=== PATIENT | female | born 1985 | race Caucasian/White ===

== ENCOUNTER 2018-01-12 11:33 | Emergency (ER) | payer OTHER ==
[~2018-01-12] VITALS: Ht 181.6 cm; Wt 124.2 kg
[2018-01-12 11:36] VITALS: TEMP 37; Ht 181.6 cm; Wt 124.2 kg
[2018-01-12] MEDS ORDERED: FLUT0.15 (11:48)
[2018-01-12] MEDS ORDERED: SYN25 PO (11:48)
[2018-01-12] MEDS ORDERED: SERT-234 PO (11:48)
[2018-01-12] MEDS ORDERED: MULT-506 PO (11:48)
[2018-01-12] MEDS ORDERED: BCPILLS PO (11:48)
[2018-01-12 11:59] VITALS: O2SAT 99
[2018-01-12] MEDS ORDERED: SODIUM CHLORIDE 0.9% 1000ML 1,000 ML IV STA (12:07)
[2018-01-12] MEDS ORDERED: FAMOTIDINE 20MG/5ML IV PUSH IV STA (12:07)
--- NOTE | 2018-01-12 12:47 | EMERGENCY ROOM VISIT NOTE ---
History First contact with patient: 12:04 Chief Complaint: CHEST PAIN Stated Complaint: CHEST PAIN, DIZZINESS Nursing Triage Summary: WHILE AT WORK, SHE GOT UP TO USE BATHROOM AND FELT LIKE SHE WAS GOING TO PASS OUT. CHEST PAINS MIDDLE OF CHEST, STABBING. HISTORY OF LYMES DISEASE WITH SIMILAR SYMPTOMS. History of Present Illness The patient is a 30 year old female who presents to the Emergency Room with complaints of chest pain that began this morning at work when she got up to use the restroom and felt lightheaded. Reports pain as constant stabbing since onset. Denies radiation, diaphoresis, sob, n/v, f/c, cough, congestion. Reports she has been evaluated for similar symptoms several times in the past with elevated D-dimers since she takes OCPs but then would have negative CT scans. Also reports 2 years ago she was diagnosed with Lyme disease and also had similar symptoms. Denies any recent tick exposures or rashes. Source of History: patient Onset: This monring Position: chest Symptom Intensity: mild Quality: stabbing Timing: constant Modifying Factors (Worsening): exertion Modifying Factors (Relieving): rest Associated Symptoms: + chest pain, No LOC, No fevers, No chills, No diaphoresis, No cough, No SOB, No nausea, No vomiting, No abdominal pain Review of Systems See HPI for pertinent positives and negatives. A total of ten systems were reviewed and were otherwise negative. Past Medical/Surgical History Medical Problems: (1) Lyme disease Family History Patient reports no known family medical history. Social History Smoking Status: Never Smoker Alcohol Use: none Drug Use: none Marital Status: Occupation Status: employed Current/Historical Medications Scheduled Control Pills ( Control Pills), 1 TAB PO DAILY Levothyroxine Sodium (Synthroid), 25 MCG PO DAILY Multivitamin (Multivitamin), 1 TAB PO DAILY Sertraline (Zoloft), 100 MG PO DAILY Miscellaneous Medications Fluticasone Propionate (Nasal) (Flonase Allergy Relief) Allergies peanuts Physical Exam Vital Signs Date Time Temp Pulse Resp B/P (MAP) Pulse Ox O2 Delivery O2 Flow Rate FiO2 01/12/18 14:30 82 20 152/99 96 01/12/18 13:11 71 16 148/88 01/12/18 11:59 99 Room Air 01/12/18 11:36 37.0 91 17 142/84 99 Room Air Physical Exam GENERAL: Awake, alert, well-appearing, in no distress HENT: Normocephalic, atraumatic. Oropharynx unremarkable. EYES: Normal conjunctiva. Sclera non-icteric. NECK: Supple. No nuchal rigidity. FROM. No JVD. RESPIRATORY: Clear to auscultation. CARDIAC: Regular rate, normal rhythm. Extremities warm and well perfused. Pulses equal. ABDOMEN: Soft, non-distended. No tenderness to palpation. No rebound or guarding. No masses. RECTAL: Deferred. MUSCULOSKELETAL: Chest examination reveals no tenderness. The back is symmetrical on inspection without obvious abnormality. There is no CVA tenderness to palpation. No joint edema. LOWER EXTREMITIES: Calves are equal size bilaterally and non-tender. No edema. No discoloration. NEURO: Normal sensorium. No sensory or motor deficits noted. SKIN: No rash or jaundice noted. Medical Decision & Procedures ER Provider Diagnostic Interpretation: X-ray: Per my interpretation, radiologist review. CHEST ONE VIEW PORTABLE CLINICAL HISTORY: Chest pain. COMPARISON STUDY: No previous studies for comparison. FINDINGS: Lung volumes are normal. No consolidation is identified. There is no evidence for pulmonary edema. Cardiomediastinal silhouette is normal. A 3 cm sclerotic lesion within the right humeral head likely reflects a chondroid lesion. IMPRESSION: 1. No acute cardiopulmonary findings. 2. 3 cm sclerotic right humeral head lesion which likely reflects a chondroid lesion. No pathologically indeterminate, this statistically reflects an enchondroma. If persistent right shoulder pain, radiographic is recommended. Electronically signed by: Ko Au M.D. 01/12/2018 12:56 PM Dictated Date/Time: 01/12/2018 12:54 PM Laboratory Results 01/12/18 12:55 Red Blood Count 4.81, Mean Corpuscular Volume 74.6, Mean Corpuscular Hemoglobin 23.1, Mean Corpuscular Hemoglobin Concent 30.9, Mean Platelet Volume 9.5, Neutrophils (%) (Auto) 56.9, Lymphocytes (%) (Auto) 33.5, Monocytes (%) (Auto) 6.7, Eosinophils (%) (Auto) 1.9, Basophils (%) (Auto) 0.7, Neutrophils # (Auto) 4.25, Lymphocytes # (Auto) 2.50, Monocytes # (Auto) 0.50, Eosinophils # (Auto) 0.14, Basophils # (Auto) 0.05 01/12/18 12:55 Test 01/12/18 12:55 White Blood Count 7.46 K/uL (4.8-10.8) Red Blood Count 4.81 M/uL (4.2-5.4) Hemoglobin 11.1 g/dL (12.0-16.0) Hematocrit 35.9 % (37-47) Mean Corpuscular Volume 74.6 fL (80-100) Mean Corpuscular Hemoglobin 23.1 pg (25-34) Mean Corpuscular Hemoglobin Concent 30.9 g/dl (32-36) Platelet Count 416 K/uL (130-400) Mean Platelet Volume 9.5 fL (7.4-10.4) Neutrophils (%) (Auto) 56.9 % Lymphocytes (%) (Auto) 33.5 % Monocytes (%) (Auto) 6.7 % Eosinophils (%) (Auto) 1.9 % Basophils (%) (Auto) 0.7 % Neutrophils # (Auto) 4.25 K/uL (1.4-6.5) Lymphocytes # (Auto) 2.50 K/uL (1.2-3.4) Monocytes # (Auto) 0.50 K/uL (0.11-0.59) Eosinophils # (Auto) 0.14 K/uL (0-0.5) Basophils # (Auto) 0.05 K/uL (0-0.2) RDW Standard Deviation 44.4 fL (36.4-46.3) RDW Coefficient of Variation 16.2 % (11.5-14.5) Immature Granulocyte % (Auto) 0.3 % Immature Granulocyte # (Auto) 0.02 K/uL (0.00-0.02) Hypochromasia PRESENT Microcytosis PRESENT Anion Gap 9.0 mmol/L (3-11) Est Creatinine Clear Calc Drug Dose 165.2 ml/min Estimated GFR () 129.7 Estimated GFR (Non- 111.9 BUN/Creatinine Ratio 11.6 (10-20) Calcium Level 8.7 mg/dl (8.5-10.1) Magnesium Level 2.2 mg/dl (1.8-2.4) Total Bilirubin 0.2 mg/dl (0.2-1) Direct Bilirubin < 0.1 mg/dl (0-0.2) Aspartate Amino Transf (AST/SGOT) 29 U/L (15-37) Alanine Aminotransferase (ALT/SGPT) 30 U/L (12-78) Alkaline Phosphatase 84 U/L (45-117) Troponin I < 0.015 ng/ml (0-0.045) Total Protein 7.3 gm/dl (6.4-8.2) Albumin 3.1 gm/dl (3.4-5.0) Lipase 232 U/L (73-393) Human Chorionic Gonadotropin, Qual NEG (NEG) Laboratory results reviewed by me Medications Administered Medications (Trade) Dose Ordered Sig/Ridge Route Start Time Stop Time Status Last Admin Dose Admin Sodium Chloride 1,000 ml @ 999 mls/hr Q1H1M STAT IV 01/12/18 12:07 01/12/18 13:07 DC 01/12/18 13:10 999 MLS/HR Famotidine (Pepcid 20mg Iv Push) 20 mg NOW STAT IV 01/12/18 12:07 01/12/18 12:17 DC 01/12/18 13:10 20 MG ECG Per My Interpretation Indication: chest pain Rate (beats per minute): 79 Rhythm: normal sinus Findings: no acute ischemic change, other (normal axis) ED Course 1204: The patient was evaluated in room B10. A complete history and physical exam was performed. 1412: I reevaluated the patient. Discussed results and discharge instructions: she verbalized understanding and agreement. The patient is ready for discharge. Medical Decision I reviewed the patient's past medical history, medications, and the nursing notes as described above. Differential diagnosis: Etiologies such as cardiac ischemia, aortic dissection, pulmonary embolism, pneumonia, pneumothorax, musculoskeletal, infections, pericarditis, myocarditis , esophageal rupture, gastrointestinal, as well as others were entertained. The patient is a 30-year-old woman who presents emergency department with chest pain, shortness of breath, nausea that began earlier today and has been constant per hpi. Of note, patient does have a history of similar episodes in the past with negative D-dimers in the setting of her OCP use and subsequent negative CT scans. On arrival the patient is anxious appearing but otherwise in no acute distress, afebrile with stable vital signs. Of note the patient does report 2 years ago having similar symptoms and was subsequently diagnosed and treated for Lyme. However the patient denies any known tick exposures or rashes. She denies any fevers chills or arthralgias. Additionally given the patient is not tachycardic or hypoxic I do not believe PE is likely in this patient. Given her age and chronically elevated d-dimer we will defer any further investigation for this at this time to avoid unnecessary radiation. EKG unremarkable. Troponin negative in the setting of several hours of constant sx. Heart score, 1, low risk, ACS not likely. Labs otherwise unremarkable including WBC wnl. CXR negative. Patient improved after IVF and pepcid. Cause of patient' s sx unclear at this time however unlikely to have emergent process given prior episodes with negative w/u as well. Findings and plan for follow-up reviewed with patient. Patient agreeable and d/c'd per discharge instructions. The scribe's documentation has been prepared under my direction and personally reviewed by me in its entirety. I confirm that the note above accurately reflects all work, treatment, procedures, and medical decision making performed by me. Medication Reconcilliation Current Medication List: was personally reviewed by me Blood Pressure Screening Patient's blood pressure: Elevated blood pressure Blood pressure disposition: Elevated BP felt to be situational Impression Primary Impression: Substernal precordial chest pain Departure Information Dispostion Home / Self-Care Referrals Nikky Yuen M.D. (PCP) Forms Call Back Authorization, HOME CARE DOCUMENTATION FORM, IMPORTANT VISIT INFORMATION Patient Instructions ED Chest Pain Atypical Unkn Cause, My [facility] Additional Instructions Please follow up with your primary care physician in the next 1-3 days for re- evaluation. The cause of your symptoms is unclear at this time Otherwise, your exam, EKG, chest xray, and lab results did not show signs of an emergent condition at this time. Acetaminophen or ibuprofen for pain and fevers as needed. Drink plenty of fluids to ensure hydration. Return to the emergency department for worsening symptoms as described in the accompanying instructions.
--- NOTE | 2018-01-12 12:57 | DIAGNOSTIC IMAGING REPORT ---
CHEST ONE VIEW PORTABLE CLINICAL HISTORY: Chest pain. COMPARISON STUDY: No previous studies for comparison. FINDINGS: Lung volumes are normal. No consolidation is identified. There is no evidence for pulmonary edema. Cardiomediastinal silhouette is normal. A 3 cm sclerotic lesion within the right humeral head likely reflects a chondroid lesion. IMPRESSION: 1. No acute cardiopulmonary findings. 2. 3 cm sclerotic right humeral head lesion which likely reflects a chondroid lesion. No pathologically indeterminate, this statistically reflects an enchondroma. If persistent right shoulder pain, radiographic is recommended. Electronically signed by: Ko Au M.D. 01/12/2018 12:56 PM Dictated Date/Time: 01/12/2018 12:54 PM
[2018-01-12 13:29] LABS: BASO % 0.7 %; BASO ABS # 0.05 K/uL (0-0.2); EOS % 1.9 %; EOS ABS # 0.14 K/uL (0-0.5); HEMATOCRIT 35.9 % (37-47); HEMOGLOBIN 11.1 g/dL (12.0-16.0); IG# 0.02 K/uL (0.00-0.02); LYMPH % 33.5 %; MEAN CELL VOLUME 74.6 fL (80-100); MEAN CORPUSCULAR HEMOGLOBIN 23.1 pg (25-34); MEAN CORPUSCULAR HGB CONC 30.9 g/dl (32-36); MEAN PLATELET VOLUME 9.5 fL (7.4-10.4); MONO % 6.7 %; NEUT % 56.9 %; NEUT ABS # 4.25 K/uL (1.4-6.5); PLATELET COUNT 416 K/uL (130-400); RED CELL DISTRIBUTION WIDTH CV 16.2 % (11.5-14.5); RED CELL DISTRIBUTION WIDTH SD 44.4 fL (36.4-46.3); WHITE BLOOD COUNT 7.46 K/uL (4.8-10.8)
[2018-01-12 13:48] LABS: ALBUMIN 3.1 gm/dl (3.4-5.0); ALT/SGPT 30 U/L (12-78); BLOOD UREA NITROGEN 8 mg/dl (7-18); CALCIUM 8.7 mg/dl (8.5-10.1); CARBON DIOXIDE 26 mmol/L (21-32); CREATININE 0.71 mg/dl (0.60-1.20); GLUCOSE 79 mg/dl (70-99); LIPASE 232 U/L (73-393); POTASSIUM 3.6 mmol/L (3.5-5.1); SODIUM 139 mmol/L (136-145)
[2018-01-12 13:53] LABS: ALKALINE PHOSPHATASE 84 U/L (45-117); AST/SGOT 29 U/L (15-37); TOTAL PROTEIN 7.3 gm/dl (6.4-8.2)
[2018-01-12 14:30] VITALS: BP 152/99; PULSE 82; O2SAT 96
== END 2018-01-12 14:32 | disposition home or self-care (01) ==
LOC: C.EDB 11:34 → EDBD 11:34 → C.EDB 14:32
DX: R07.2 Precordial pain (principal); R42 Dizziness and giddiness; Z79.899 Other long term (current) drug therapy; Z91.010 Allergy to peanuts

== ENCOUNTER 2018-02-09 13:15 | Inpatient (IN) | payer OTHER ==
[~2018-02-09] VITALS: Ht 180.3 cm; Wt 117.0 kg
[~2018-02-09 13:15] MED LIST: BCPILLS PO; FLUT0.15; MULT-506 PO; SERT-234 PO; SYN25 PO
--- NOTE | 2018-02-09 14:01 | EMERGENCY ROOM VISIT NOTE ---
History First contact with patient: 13:37 Chief Complaint: LEG PAIN,LEG INJURY Stated Complaint: LEG PAIN History of Present Illness The patient is a 32 year old female who presents to the Emergency Room with complaints of left leg swelling and persistent chest pain. She reports she has had this chest pain over the last two years ever since she had Lyme disease, treated at an outside hospital. Since then she has had multiple episodes of sharp chest pain, which she has gone to the ED for. Her D-Dimer has frequently been positive, and then she has had multiple CT's for PE which have been negative. Her last CT was a year ago. She reports over the last three days has been present again, and she had thought she had flu like symptoms. She got scared when she noticed left leg swelling behind her knee, and she found it painful when she would flex her foot. The pain did not radiate, she did not have sx in her R leg at all. She denies any shortness of breath. Her heart has been racing, which is new for her. She denies cough, congestion, abdominal pain , or fever. Review of Systems See HPI for pertinent positives & negatives. A total of 10 systems reviewed and were otherwise negative. Past Medical/Surgical History Medical Problems: (1) Lyme disease Family History Patient reports no known family medical history. 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[employer]) Current/Historical Medications Scheduled Enoxaparin (Lovenox), 120 MG SQ BID Levothyroxine Sodium (Synthroid), 25 MCG PO QAM Metoprolol Tartrate (Lopressor), 25 MG PO DAILY Multivitamin (Multivitamin), 1 TAB PO QAM Omeprazole (Prilosec), 20 MG PO QAM Sertraline (Zoloft), 100 MG PO QAM Warfarin Sodium (Coumadin), 2 MG PO DAILY Warfarin Sodium (Coumadin), 3 MG PO DAILY Miscellaneous Medications Fluticasone Propionate (Nasal) (Flonase Allergy Relief) Allergies Peanuts Physical Exam Vital Signs Date Time Temp Pulse Resp B/P (MAP) Pulse Ox O2 Delivery O2 Flow Rate FiO2 02/09/18 18:12 103 19 141/90 94 Room Air 02/09/18 17:47 96 Room Air 02/09/18 16:41 96 22 139/90 96 Room Air 02/09/18 14:56 107 22 152/90 95 Room Air 02/09/18 13:54 100 Room Air 02/09/18 13:42 37.0 118 20 173/96 95 Room Air 02/09/18 13:32 111 Physical Exam GENERAL: Awake, alert, well-appearing, in no acute distress, obese. HENT: Normocephalic, atraumatic. Oropharynx unremarkable. EYES: Normal conjunctiva. Sclera non-icteric. NECK: Supple. No nuchal rigidity. FROM. No JVD. RESPIRATORY: Clear to auscultation. CARDIAC: Regular rate, normal rhythm. Extremities warm and well perfused. Pulses equal. ABDOMEN: Soft, non-distended. No tenderness to palpation. No rebound or guarding. No masses. RECTAL: Deferred. MUSCULOSKELETAL: Chest examination reveals no tenderness. The back is symmetrical on inspection without obvious abnormality. There is no CVA tenderness to palpation. No joint edema. LOWER EXTREMITIES: No tenderness or edema to R leg. Fullness behind L knee, soft , nontender. No edema. No discoloration. Full ROM of leg. NEURO: Normal sensorium. No sensory or motor deficits noted. SKIN: No rash or jaundice noted. Medical Decision & Procedures ER Provider Diagnostic Interpretation: ULTRASOUND LEFT LOWER EXTREMITY VENOUS CLINICAL HISTORY: Left leg swelling. COMPARISON STUDY: No priors. TECHNIQUE: Real-time, grayscale, and color Doppler sonography of the deep veins of the left lower extremity was performed from the inguinal crease to the calf. Compression and augmentation were utilized. FINDINGS: There is no sonographic evidence of deep venous thrombosis identified in the left lower extremity. The common femoral, superficial femoral, and popliteal veins are patent and normally compressible. The greater saphenous vein and the profunda femoris vein at the junction with the common femoral vein are clear. The visualized calf veins are patent. IMPRESSION: There is no sonographic evidence of deep venous thrombosis identified in the left lower extremity. CT PE IMPRESSION: 1. Multiple bilateral pulmonary emboli. No CT evidence of right heart strain. No pulmonary infarct. Findings discussed with Dr. Villanueva at time of dictation. 2. Apparent 2.5 cm hypodense hepatic lesion which is partially imaged on this exam. A follow-up nonemergent MRI of the liver could be obtained. This could reflect a lesion or focal fat. 3. 2.7 cm chondroid lesion within the right humeral head which statistically reflects an enchondroma. Laboratory Results Test 02/09/18 14:00 02/09/18 14:11 02/09/18 14:26 Urine Test NEG (NEG) Immature Granulocyte % (Auto) 0.2 % White Blood Count 11.39 K/uL (4.8-10.8) Red Blood Count 5.28 M/uL (4.2-5.4) Hemoglobin 11.8 g/dL (12.0-16.0) Hematocrit 38.8 % (37-47) Mean Corpuscular Volume 73.5 fL (80-100) Mean Corpuscular Hemoglobin 22.3 pg (25-34) Mean Corpuscular Hemoglobin Concent 30.4 g/dl (32-36) Platelet Count 397 K/uL (130-400) Mean Platelet Volume 9.4 fL (7.4-10.4) Neutrophils (%) (Auto) 89.0 % Lymphocytes (%) (Auto) 6.3 % Monocytes (%) (Auto) 3.9 % Eosinophils (%) (Auto) 0.4 % Basophils (%) (Auto) 0.2 % Neutrophils # (Auto) 10.15 K/uL (1.4-6.5) Lymphocytes # (Auto) 0.72 K/uL (1.2-3.4) Monocytes # (Auto) 0.44 K/uL (0.11-0.59) Eosinophils # (Auto) 0.04 K/uL (0-0.5) Basophils # (Auto) 0.02 K/uL (0-0.2) Immature Granulocyte # (Auto) 0.02 K/uL (0.00-0.02) Large Platelets 1+ Poikilocytosis PRESENT Total Bilirubin 0.4 mg/dl (0.2-1) Aspartate Amino Transf (AST/SGOT) 27 U/L (15-37) Alanine Aminotransferase (ALT/SGPT) 26 U/L (12-78) Alkaline Phosphatase 84 U/L (45-117) Total Protein 7.8 gm/dl (6.4-8.2) Albumin 3.1 gm/dl (3.4-5.0) Globulin 4.7 gm/dl (2.5-4.0) Albumin/Globulin Ratio 0.7 (0.9-2) Bedside D-Dimer > 450 ng/mlFEU (0-450) Bedside Troponin I < 0.030 ng/ml (0-0.045) Medications Administered Medications (Trade) Dose Ordered Sig/Ridge Route Start Time Stop Time Status Last Admin Dose Admin Ondansetron HCl (Zofran Odt) 4 mg NOW STAT PO 02/09/18 15:34 02/09/18 15:35 DC 02/09/18 15:40 4 MG Heparin Sodium/ Dextrose (Heparin 25,000 Unit/500ml D5W) 25,000 unit STK-MED ONCE .ROUTE 02/09/18 17:04 02/09/18 17:05 DC 02/09/18 17:40 25,000 UNIT Heparin Sodium (Porcine) (Heparin Iv Bolus) 10,000 unit STK-MED ONCE .ROUTE 02/09/18 17:04 02/09/18 17:05 DC 02/09/18 17:41 7,000 UNIT Sodium Chloride 500 ml @ 50 mls/hr Q10H ONCE IV 02/09/18 18:15 02/10/18 04:14 DC 02/09/18 20:38 50 MLS/HR Acetaminophen (Tylenol Tab) 650 mg Q4H PRN PO 02/09/18 18:15 02/13/18 13:34 DC 02/09/18 20:37 650 MG ECG Per My Interpretation Indication: chest pain Rhythm: sinus tachycardia Findings: no acute ischemic change ED Course 1338: The patient was evaluated in room A5. A complete history and physical exam was performed. 1446: I discussed the case with Dr. Abel. I ordered a CT for PE. 1534: Ordered Zofran Odt 4 mg PO. 1656: Ordered Heparin Sodium/Dextrose since her CT was positive for PE. 1707: Upon reevaluation, the patient appears comfortable. Dr Abel and I discussed tonight's findings with her, including diagnosis and Heparin usage. She verbalized agreement of the treatment plan. The patient will be evaluated for further management. Medical Decision 32 yo F who presents with recurrent chest pain and tachycardia, and left leg swelling. Her risk factors for PE included obesity, OCP use. She has had multiple work ups for chest pain and interestingly has had positive D-Dimers in the past with negative CT for PE's. Differential includes: deep vein thrombosis , superficial thrombophlebitis, pulmonary embolism, pleurisy, pericarditis, GERD. The patient had an IV placed and labs drawn. Her urinary was negative. Her D-Dimer was over 3300, so CT was ordered. Her US of the left leg was negative for blood clot. The CT showed bilateral pulmonary emboli. The patient was started on heparin drip with IV bolus and admitted to medicine for further evaluation and management. Impression Primary Impression: Pulmonary embolism, bilateral Departure Information Dispostion Being Evaluated By Hospitalist Condition GOOD Prescriptions Enoxaparin (LOVENOX) 40 Mg/0.4 Ml Inj 120 MG SQ BID, #3 SYR Prov: Eric Monroy MD 02/13/18 Warfarin Sodium (COUMADIN) 3 Mg Tab 3 MG PO DAILY for 30 Days, #30 TAB 1 Refill coumadin 5mg po daily until further instructions from coumadin clinic Prov: Eric Monroy MD 02/13/18 Warfarin Sodium (COUMADIN) 2 Mg Tab 2 MG PO DAILY, #30 TAB 1 Refill coumadin 5mg po daily until further instructions from coumadin clinic Prov: Eric Monroy MD 02/13/18 Referrals Nikky Yuen M.D. (PCP) Patient Instructions My [facility]
[2018-02-09 14:26] LABS: BASO % 0.2 %; BASO ABS # 0.02 K/uL (0-0.2); EOS % 0.4 %; EOS ABS # 0.04 K/uL (0-0.5); HEMATOCRIT 38.8 % (37-47); HEMOGLOBIN 11.8 g/dL (12.0-16.0); IG# 0.02 K/uL (0.00-0.02); LYMPH % 6.3 %; LYMPH ABS # 0.72 K/uL (1.2-3.4); MEAN CELL VOLUME 73.5 fL (80-100); MEAN CORPUSCULAR HEMOGLOBIN 22.3 pg (25-34); MEAN CORPUSCULAR HGB CONC 30.4 g/dl (32-36); MEAN PLATELET VOLUME 9.4 fL (7.4-10.4); MONO % 3.9 %; MONO ABS # 0.44 K/uL (0.11-0.59); NEUT ABS # 10.15 K/uL (1.4-6.5); PLATELET COUNT 397 K/uL (130-400); RED CELL DISTRIBUTION WIDTH CV 16.9 % (11.5-14.5); RED CELL DISTRIBUTION WIDTH SD 45.9 fL (36.4-46.3); WHITE BLOOD COUNT 11.39 K/uL (4.8-10.8)
[2018-02-09 14:42] LABS: ALBUMIN 3.1 gm/dl (3.4-5.0); CALCIUM 8.5 mg/dl (8.5-10.1); CREATININE 0.81 mg/dl (0.60-1.20); POTASSIUM 3.8 mmol/L (3.5-5.1)
--- NOTE | 2018-02-09 14:42 | DIAGNOSTIC IMAGING REPORT ---
ULTRASOUND LEFT LOWER EXTREMITY VENOUS CLINICAL HISTORY: Left leg swelling. COMPARISON STUDY: No priors. TECHNIQUE: Real-time, grayscale, and color Doppler sonography of the deep veins of the left lower extremity was performed from the inguinal crease to the calf. Compression and augmentation were utilized. FINDINGS: There is no sonographic evidence of deep venous thrombosis identified in the left lower extremity. The common femoral, superficial femoral, and popliteal veins are patent and normally compressible. The greater saphenous vein and the profunda femoris vein at the junction with the common femoral vein are clear. The visualized calf veins are patent. IMPRESSION: There is no sonographic evidence of deep venous thrombosis identified in the left lower extremity. Electronically signed by: Mango Garcia M.D. 02/09/2018 2:41 PM Dictated Date/Time: 02/09/2018 2:41 PM
[2018-02-09 14:45] LABS: TOTAL PROTEIN 7.8 gm/dl (6.4-8.2)
[2018-02-09] MEDS ORDERED: PRLSR20 PO (14:52)
[2018-02-09] MEDS ORDERED: OPTIRAY 320 IV PRN (15:00)
[2018-02-09] MEDS ORDERED: ONDANSETRON 4MG OD TAB PO STA (15:34)
--- NOTE | 2018-02-09 16:59 | DIAGNOSTIC IMAGING REPORT ---
CT ANGIOGRAPHY OF THE CHEST, PULMONARY EMBOLUS PROTOCOL CLINICAL HISTORY: Chest pain. Elevated d-dimer. Leg pain. COMPARISON STUDY: Chest radiograph January 12, 2018. TECHNIQUE: Following IV administration of 101 mL of [id number]-320, helical axial images of the chest were obtained utilizing the pulmonary embolus protocol. Maximal intensity projections and sagittal and coronal reformats were viewed on an independent 3D workstation. IV contrast was administered without complication. A dose lowering technique was utilized adhering to the principles of ALARA. CT DOSE: 537.28 mGycm FINDINGS: There are multiple bilateral pulmonary emboli, including subocclusive thrombus within the right lower lobe pulmonary artery. This vessel is slightly expanded. Emboli are also noted within the left lower lobe pulmonary artery which appear adherent to the wall. This thrombus may be old. Segmental emboli within the left lower lobe are likely acute. There are segmental emboli within the right lower lobe which are likely acute. There is no CT evidence for right heart strain. There is no infarct. No pneumothorax or pleural effusion is noted. Note is made of a 2.7 cm chondroid lesion within the right humeral head. There is a apparent 2.5 cm hypodense segment 4A/8 hepatic lesion shown on image 2. This is partially imaged on this exam. IMPRESSION: 1. Multiple bilateral pulmonary emboli. No CT evidence of right heart strain. No pulmonary infarct. Findings discussed with Dr. Villanueva at time of dictation. 2. Apparent 2.5 cm hypodense hepatic lesion which is partially imaged on this exam. A follow-up nonemergent MRI of the liver could be obtained. This could reflect a lesion or focal fat. 3. 2.7 cm chondroid lesion within the right humeral head which statistically reflects an enchondroma. Electronically signed by: Ko Au M.D. 02/09/2018 4:58 PM Dictated Date/Time: 02/09/2018 4:42 PM
[2018-02-09] MEDS: HEPARIN 25000 UNIT/500 ML D5W ONE ×2 (17:04→17:40)
[2018-02-09] MEDS: HEPARIN SOD (PORCINE) 1000 UNIT/ML 10 ML VIAL ONE ×2 (17:04→17:41)
--- NOTE | 2018-02-09 17:20 | History and Physical ---
History & Physical Date & Time of Service: Feb 09, 2018 at 17:20 Chief Complaint: Leg Pain Primary Care Physician: Nikky Yuen M.D. History of Present Illness Source: patient Patient is a 32 yr female with PMH of PCOS, Hypothyroidism, GERD, anxiety disorder and other problems presents with history of Intermittent chest pain, SOB, palpitations, dizziness, nausea and diaphoresis. Patient reports she has intermittent chest pain since last 1 1/2 years (Since being diagnosed to have Lyme's disease at that time) and was thought to be secondary to anxiety. Patient noticed worsening of chest pain since last 3 days. Reports chest pain is dull, retrosternal, pressure like which improves with rest and is associated with nausea, vomiting, diaphoresis, dizziness, palpitations and chills. She also reports Left leg pain behind her left knee and was seen at Urgent Care and was referred to ED for further evaluation. CTA showed findings suggestive of multiple bilateral pulmonary emboli and patient admits to taking OCPs for contraception. Denies any history of Orthopnea, PND, pedal edema, cough, hemoptysis, fever, chills, recent travel. She reports that started to have her periods today. Past Medical/Surgical History Medical Problems: (1) Lyme disease (2) Substernal precordial chest pain Past Surgical History: Right Humerus Chondroblastoma removal Family History Patient reports no known family medical history. Mother: Hypothyroid, Heart disease Brother: Type I DM Social History Smoking Status: Never Smoker Alcohol Use: socially Drug Use: none Marital Status: Occupational Status: employed Allergies Coded Allergies: Peanut (Unverified Allergy, Unknown, hives and vomiting, 02/09/18) Home Medications Scheduled Control Pills ( Control Pills), 1 TAB PO QAM Levothyroxine Sodium (Synthroid), 25 MCG PO QAM Metoprolol Tartrate (Lopressor), 25 MG PO DAILY Multivitamin (Multivitamin), 1 TAB PO QAM Omeprazole (Prilosec), 20 MG PO QAM Sertraline (Zoloft), 100 MG PO QAM Miscellaneous Medications Fluticasone Propionate (Nasal) (Flonase Allergy Relief) Review of Systems See HPI for pertinent positives & negatives. A total of 10 systems reviewed and were otherwise negative. Physical Exam Vital Signs Date Time Temp Pulse Resp B/P (MAP) Pulse Ox O2 Delivery O2 Flow Rate FiO2 02/09/18 16:41 96 22 139/90 96 Room Air 02/09/18 14:56 107 22 152/90 95 Room Air 02/09/18 13:54 100 Room Air 02/09/18 13:42 37.0 118 20 173/96 95 Room Air 02/09/18 13:32 111 General Appearance: WD/WN, no apparent distress, + obese Head: normocephalic, atraumatic Eyes: normal inspection, PERRL, EOMI, sclerae normal ENT: normal ENT inspection, hearing grossly normal Neck: supple, trachea midline Respiratory/Chest: chest non-tender, lungs clear, normal breath sounds, no respiratory distress, no accessory muscle use Cardiovascular: regular rate, rhythm, no edema, no murmur, + tachycardia Abdomen/GI: normal bowel sounds, non tender, soft Back: normal inspection Extremities/Musculoskelatal: normal inspection, no pedal edema, + pertinent finding (Mild tendeness behind Left knee, No erythema, swelling) Neurologic/Psych: inpatient nursing aide II-XII nml as tested, no motor/sensory deficits, alert, normal mood/affect, oriented x 3 Skin: normal color, warm/dry Diagnostics Laboratory Results Results Past 24 Hours Test 02/09/18 14:00 02/09/18 14:11 02/09/18 14:26 Range/Units Urine Test NEG NEG White Blood Count 11.39 4.8-10.8 K/uL Red Blood Count 5.28 4.2-5.4 M/uL Hemoglobin 11.8 12.0-16.0 g/dL Hematocrit 38.8 37-47 % Mean Corpuscular Volume 73.5 80-100 fL Mean Corpuscular Hemoglobin 22.3 25-34 pg Mean Corpuscular Hemoglobin Concent 30.4 32-36 g/dl Platelet Count 397 130-400 K/uL Mean Platelet Volume 9.4 7.4-10.4 fL Neutrophils (%) (Auto) 89.0 % Lymphocytes (%) (Auto) 6.3 % Monocytes (%) (Auto) 3.9 % Eosinophils (%) (Auto) 0.4 % Basophils (%) (Auto) 0.2 % Neutrophils # (Auto) 10.15 1.4-6.5 K/uL Lymphocytes # (Auto) 0.72 1.2-3.4 K/uL Monocytes # (Auto) 0.44 0.11-0.59 K/uL Eosinophils # (Auto) 0.04 0-0.5 K/uL Basophils # (Auto) 0.02 0-0.2 K/uL RDW Standard Deviation 45.9 36.4-46.3 fL RDW Coefficient of Variation 16.9 11.5-14.5 % Immature Granulocyte % (Auto) 0.2 % Immature Granulocyte # (Auto) 0.02 0.00-0.02 K/uL Large Platelets 1+ Poikilocytosis PRESENT Sodium Level 136 136-145 mmol/L Potassium Level 3.8 3.5-5.1 mmol/L Chloride Level 104 98-107 mmol/L Carbon Dioxide Level 25 21-32 mmol/L Anion Gap 7.0 3-11 mmol/L Blood Urea Nitrogen 12 7-18 mg/dl Creatinine 0.81 0.60-1.20 mg/dl Est Creatinine Clear Calc Drug Dose 140.3 ml/min Estimated GFR () 110.6 Estimated GFR (Non- 95.4 BUN/Creatinine Ratio 15.3 10-20 Random Glucose 94 70-99 mg/dl Calcium Level 8.5 8.5-10.1 mg/dl Total Bilirubin 0.4 0.2-1 mg/dl Aspartate Amino Transf (AST/SGOT) 27 15-37 U/L Alanine Aminotransferase (ALT/SGPT) 26 12-78 U/L Alkaline Phosphatase 84 45-117 U/L Total Protein 7.8 6.4-8.2 gm/dl Albumin 3.1 3.4-5.0 gm/dl Globulin 4.7 2.5-4.0 gm/dl Albumin/Globulin Ratio 0.7 0.9-2 Bedside D-Dimer > 450 0-450 ng/mlFEU Bedside Troponin I < 0.030 0-0.045 ng/ml Diagnostic Radiology CTA: 1. Multiple bilateral pulmonary emboli. No CT evidence of right heart strain. No pulmonary infarct. Findings discussed with Dr. Villanueva at time of dictation. 2. Apparent 2.5 cm hypodense hepatic lesion which is partially imaged on this exam. A follow-up nonemergent MRI of the liver could be obtained. This could reflect a lesion or focal fat. 3. 2.7 cm chondroid lesion within the right humeral head which statistically reflects an enchondroma. Venous Doppler: There is no sonographic evidence of deep venous thrombosis identified in the left lower extremity. EKG EKG: Sinus tachycardia Possible Left atrial enlargement Impression Assessment and Plan Acute B/L Pulmonary Emboli Likely secondary to OCP use CTA: Multiple bilateral pulmonary emboli. No CT evidence of right heart strain. No pulmonary infarct Saturating well on Room air Start on IV heparin Monitor in Tele for hemodynamic changes Venous Doppler: Negative Oxygen PRN Discontinue OCPs hypercoagulable work up as outpatient Consider starting on newer anticoagulants as per Patient's preference tomorrow Check ECHO Trend cardiac enzymes Incidental hepatic lesion on CT scan: follow-up with nonemergent MRI of the liver as outpatient PCOS: Previously on Metformin (Discontinued 2/2 GI symptoms) Hypothyroidism: Continue Levothyroxine GERD: continue PPI Anxiety disorder: continue home meds DVT Px: On IV heparin ggt Code Status: Full Code Disposition: Monitor in Tele Expect to discharge home when stable Resuscitation Status VTE Prophylaxis Will order VTE Prophylaxis: Yes
--- NOTE | 2018-02-09 17:25 | EMERGENCY ROOM VISIT NOTE ---
History Report prepared by Edison: Imer Kumar Under the Supervision of: Dr. Jason Abel M.D. First contact with patient: 13:37 Chief Complaint: LEG PAIN,LEG INJURY Stated Complaint: LEG PAIN History of Present Illness The patient is a 32 year old female who presents to the Emergency Room with complaints of constant left leg swelling and pain beginning a few days ago. She localizes her symptoms to behind her left knee. The patient was seen at urgent care for her symptoms and was referred to the ED. She notes that she vomited earlier today, and then once at urgent care. She states that walking "pinches" her calf. The patient also complains of heart palpitations over the past few days. She is on control, and her periods have been normal (sexually active , started spotting today). She notes that she works in [employer] and sits a lot at work. The patient has no personal or family history of blood clots. She denies recent travel. She denies fevers. The patient adds that she has been experiencing chest pain and shortness of breath for the past three days. She describes her pain as a "tightness". She has a history of intermittent chest pain for the past few years and states that her chest pain feels identical to her normal chest pain. The patient states that her normal chest pain has been present ever since she was diagnosed with Lyme's disease. She states that her pain was initially "sharp" and "stabbing" but became more of a "tightness" a few years ago. Her pain is typically present for 3-4 days at a time. The patient has been evaluated at multiple hospitals for her chest pain. She notes that her D-dimer is always positive, and she has had frequent chest CT's. Source of History: patient Onset: A few days ago Position: leg (behind left knee) Quality: other (pain and swelling) Timing: constant Modifying Factors (Worsening): other (walking) Associated Symptoms: + chest pain ("tightness"), + SOB, No fevers Review of Systems See HPI for pertinent positives & negatives. A total of 10 systems reviewed and were otherwise negative. Past Medical & Surgical Medical Problems: (1) Lyme disease Family History Patient reports no known family medical history. Social History Smoking Status: Never Smoker Alcohol Use: none Drug Use: none Marital Status: Occupation Status: employed Current/Historical Medications Scheduled Control Pills ( Control Pills), 1 TAB PO QAM Levothyroxine Sodium (Synthroid), 25 MCG PO QAM Multivitamin (Multivitamin), 1 TAB PO QAM Omeprazole (Prilosec), 20 MG PO QAM Sertraline (Zoloft), 100 MG PO QAM Miscellaneous Medications Fluticasone Propionate (Nasal) (Flonase Allergy Relief) Allergies Coded Allergies: Peanut (Unverified Allergy, Unknown, hives and vomiting, 02/09/18) Physical Exam Vital Signs Date Time Temp Pulse Resp B/P (MAP) Pulse Ox O2 Delivery O2 Flow Rate FiO2 02/09/18 16:41 96 22 139/90 96 Room Air 02/09/18 14:56 107 22 152/90 95 Room Air 02/09/18 13:54 100 Room Air 02/09/18 13:42 37.0 118 20 173/96 95 Room Air 02/09/18 13:32 111 Physical Exam Constitutional: Vital signs reviewed. Eyes: Pupils are equal round reactive to light. Conjunctiva are noninjected. ENT: Pharynx is clear without erythema or exudate. Mucous membranes are moist. Neck supple without meningeal signs. Respiratory: Clear to auscultation bilaterally. Breath sounds are equal bilaterally. Cardiovascular: Regular rate and rhythm. No rubs or gallops. GI: Soft, nondistended and nontender. Bowel sounds are present. Musculoskeletal: No peripheral edema. Mild left calf tenderness. Integumentary: No cyanosis. Neurological: The patient is awake and alert. No focal deficits. Psychiatric: Normal affect. Medical Decision & Procedures ER Provider Diagnostic Interpretation: Radiology results as stated below per my review and the radiologist's interpretation: ULTRASOUND LEFT LOWER EXTREMITY VENOUS FINDINGS: There is no sonographic evidence of deep venous thrombosis identified in the left lower extremity. The common femoral, superficial femoral, and popliteal veins are patent and normally compressible. The greater saphenous vein and the profunda femoris vein at the junction with the common femoral vein are clear. The visualized calf veins are patent. IMPRESSION: There is no sonographic evidence of deep venous thrombosis identified in the left lower extremity. Electronically signed by: Mango Garcia M.D. 02/09/2018 2:[address] ANGIOGRAPHY OF THE CHEST, PULMONARY EMBOLUS PROTOCOL FINDINGS: There are multiple bilateral pulmonary emboli, including subocclusive thrombus within the right lower lobe pulmonary artery. This vessel is slightly expanded. Emboli are also noted within the left lower lobe pulmonary artery which appear adherent to the wall. This thrombus may be old. Segmental emboli within the left lower lobe are likely acute. There are segmental emboli within the right lower lobe which are likely acute. There is no CT evidence for right heart strain. There is no infarct. No pneumothorax or pleural effusion is noted. Note is made of a 2.7 cm chondroid lesion within the right humeral head. There is a apparent 2.5 cm hypodense segment 4A/8 hepatic lesion shown on image 2. This is partially imaged on this exam. IMPRESSION: 1. Multiple bilateral pulmonary emboli. No CT evidence of right heart strain. No pulmonary infarct. Findings discussed with Dr. Villanueva at time of dictation. 2. Apparent 2.5 cm hypodense hepatic lesion which is partially imaged on this exam. A follow-up nonemergent MRI of the liver could be obtained. This could reflect a lesion or focal fat. 3. 2.7 cm chondroid lesion within the right humeral head which statistically reflects an enchondroma. Electronically signed by: Ko Au M.D. 02/09/2018 4:58 PM Laboratory Results 02/09/18 14:11 Red Blood Count 5.28, Mean Corpuscular Volume 73.5, Mean Corpuscular Hemoglobin 22.3, Mean Corpuscular Hemoglobin Concent 30.4, Mean Platelet Volume 9.4, Neutrophils (%) (Auto) 89.0, Lymphocytes (%) (Auto) 6.3, Monocytes (%) (Auto) 3.9, Eosinophils (%) (Auto) 0.4, Basophils (%) (Auto) 0.2, Neutrophils # (Auto) 10.15, Lymphocytes # (Auto) 0.72, Monocytes # (Auto) 0.44, Eosinophils # (Auto) 0.04, Basophils # (Auto) 0.02 02/09/18 14:11 Test 02/09/18 14:00 02/09/18 14:11 02/09/18 14:26 Urine Test NEG (NEG) White Blood Count 11.39 K/uL (4.8-10.8) Red Blood Count 5.28 M/uL (4.2-5.4) Hemoglobin 11.8 g/dL (12.0-16.0) Hematocrit 38.8 % (37-47) Mean Corpuscular Volume 73.5 fL (80-100) Mean Corpuscular Hemoglobin 22.3 pg (25-34) Mean Corpuscular Hemoglobin Concent 30.4 g/dl (32-36) Platelet Count 397 K/uL (130-400) Mean Platelet Volume 9.4 fL (7.4-10.4) Neutrophils (%) (Auto) 89.0 % Lymphocytes (%) (Auto) 6.3 % Monocytes (%) (Auto) 3.9 % Eosinophils (%) (Auto) 0.4 % Basophils (%) (Auto) 0.2 % Neutrophils # (Auto) 10.15 K/uL (1.4-6.5) Lymphocytes # (Auto) 0.72 K/uL (1.2-3.4) Monocytes # (Auto) 0.44 K/uL (0.11-0.59) Eosinophils # (Auto) 0.04 K/uL (0-0.5) Basophils # (Auto) 0.02 K/uL (0-0.2) RDW Standard Deviation 45.9 fL (36.4-46.3) RDW Coefficient of Variation 16.9 % (11.5-14.5) Immature Granulocyte % (Auto) 0.2 % Immature Granulocyte # (Auto) 0.02 K/uL (0.00-0.02) Large Platelets 1+ Poikilocytosis PRESENT Anion Gap 7.0 mmol/L (3-11) Est Creatinine Clear Calc Drug Dose 140.3 ml/min Estimated GFR () 110.6 Estimated GFR (Non- 95.4 BUN/Creatinine Ratio 15.3 (10-20) Calcium Level 8.5 mg/dl (8.5-10.1) Total Bilirubin 0.4 mg/dl (0.2-1) Aspartate Amino Transf (AST/SGOT) 27 U/L (15-37) Alanine Aminotransferase (ALT/SGPT) 26 U/L (12-78) Alkaline Phosphatase 84 U/L (45-117) Total Protein 7.8 gm/dl (6.4-8.2) Albumin 3.1 gm/dl (3.4-5.0) Globulin 4.7 gm/dl (2.5-4.0) Albumin/Globulin Ratio 0.7 (0.9-2) Bedside D-Dimer > 450 ng/mlFEU (0-450) Bedside Troponin I < 0.030 ng/ml (0-0.045) Laboratory results as reviewed by me. Medications Administered Medications (Trade) Dose Ordered Sig/Ridge Route Start Time Stop Time Status Last Admin Dose Admin Ondansetron HCl (Zofran Odt) 4 mg NOW STAT PO 02/09/18 15:34 02/09/18 15:35 DC 02/09/18 15:40 4 MG ECG Per My Interpretation Indication: chest pain Rate (beats per minute): 103 Rhythm: sinus tachycardia Findings: other (No ST elevations. No PVCs. ) ED Course 1338: The patient was evaluated in room A5. A complete history and physical exam was performed. 1534: Ordered Zofran Odt 4 mg PO. 1656: Ordered Heparin Sodium/Dextrose. 1707: Upon reevaluation, the patient appears comfortable. I discussed tonight's findings with her, including diagnosis and Heparin usage. She verbalized agreement of the treatment plan. The patient will be evaluated for further management. Medical Decision Resident Physician Supervision Note: I did evaluate and examine this patient myself. I did guide management for the patient. I agree with the resident's Dr. Courtney Villanueva assessment as discussed. Please see the resident's dictation for further details. This is a 32-year-old female presents with chest pain and leg pain. Differential diagnosis includes DVT, superficial thrombophlebitis, pulmonary embolism, pleurisy, pericarditis, GERD. I did perform a limited focused review of portions of the patient's old chart on the electronic medical record. The patient was here January 12 for chest pain. She had a negative work-up and was discharged home. I did evaluate the patient as noted above. IV access was established. The patient was placed on a continuous court recording monitor. I did order and personally review the patient's 12-lead EKG as described above. I did order and review the patient's blood work as noted in the electronic medical record. D-dimer is over 3300. Doppler ultrasound of the left leg showed no evidence of DVT. I did order a CT of the chest. I did review the images myself as well as the radiology report as described above. She does have multiple pulmonary emboli. I did discuss the test results with the patient. We did review risks and benefits of heparin IV with her. She was started on a heparin drip with an IV bolus. The case was discussed with the hospitalist and returned case inspector. Medication Reconcilliation Current Medication List: was personally reviewed by me Blood Pressure Screening Patient's blood pressure: Elevated blood pressure Blood pressure disposition: Referred to PCP Consults Time Called: 1706 Consulting Physician: Dr. Sellers - Abdirahman Hospitalist Returned Call: [address] [facility] of [facility]. We discussed the patient and her results. The patient will be further evaluated by Abdirahman. Impression Primary Impression: Bilateral pulmonary embolism Critical Care I have personally spent 32 minutes of critical care time in the direct management of this patient. This includes bedside care, interpretation of diagnostic studies, and testing, discussion with consultants, patient, and family members, and other required patient management activities. This 32 minutes is in excess of all separately billable procedures. Scribe Attestation The scribe's documentation has been prepared under my direct and personally reviewed by me in its entirety. I confirm that the note above accurately reflects all work, treatment, procedures, and medical decision making performed by me. Departure Information Dispostion Being Evaluated By Hospitalist Nikky Cavazos M.D. (PCP) Patient Instructions My [facility]
[2018-02-09 17:27] LABS: INR 0.9 (0.9-1.1); PTT PATIENT 22.9 SECONDS (21.0-31.0)
[2018-02-09 17:47] VITALS: O2SAT 96; Ht 180.3 cm; Wt 117.0 kg
[2018-02-09] MEDS ORDERED: ACETAMINOPHEN 325 MG TAB PO PRN (18:15)
[2018-02-09] MEDS ORDERED: ONDANSETRON INJ 2 MG/ML 2 ML VIAL IV PRN (18:15)
[2018-02-09] MEDS ORDERED: SODIUM CHLORIDE 0.9% 1000ML 500 ML IV ONE (18:15)
[2018-02-09] MEDS ORDERED: LPR25 PO (18:21)
[2018-02-09 19:15] VITALS: BP 121/81; PULSE 99; TEMP 36.8; O2SAT 97
[2018-02-09] MEDS: HEPARIN 25,000 UNIT/500ML D5W 500 ML IV SCH (20:00)
[2018-02-09] MEDS: METOPROLOL TARTRATE 25 MG TAB PO SCH (20:37)
--- NOTE | 2018-02-09 22:45 | DIAGNOSTIC IMAGING REPORT ---
HEAD WITHOUT CONTRAST (CT) CLINICAL HISTORY: 32 years-old Female presenting with carrizales. TECHNIQUE: Multidetector CT imaging of the head was performed without the use of intravenous contrast. IV contrast: None. A dose lowering technique was used consistent with the principles of ALARA (as low as reasonably achievable). COMPARISON: None. CT DOSE (mGy.cm): The estimated cumulative dose is 580.48 mGy.cm. FINDINGS: Door Glass Installer topogram: Unremarkable. Ventricles and sulci normal in size. Brain parenchyma normal in appearance with preserved hernandez-white differentiation. No mass effect or midline shift. No hemorrhage or acute territorial infarct. No extra-axial fluid collection. Paranasal sinuses and mastoid air cells clear. Calvarium intact. IMPRESSION: 1. No acute intracranial abnormality. Electronically signed by: Gerardo Estrada M.D. 02/09/2018 10:43 PM Dictated Date/Time: 02/09/2018 10:41 PM
[2018-02-09] MEDS: TRAMADOL HCL 50 MG TAB PO PRN (23:20)
[2018-02-09 23:45] LABS: PTT PATIENT 31.5 SECONDS (21.0-31.0)
[2018-02-10] VITALS (12 sets, daily range): BP systolic 106–155; BP diastolic 69–89; PULSE 71–86; TEMP 36.4–37.1; O2SAT 94–98
[2018-02-10] MEDS ORDERED: HEPARIN IV BOLUS 7,000 UNIT in SYRINGE 0 ML IV ONE (00:30)
[2018-02-10] MEDS: HEPARIN 25,000 UNIT/500ML D5W 500 ML IV SCH ×3 (01:14→22:30)
[2018-02-10] MEDS: LEVOTHYROXINE 25 MCG TAB PO SCH (06:57)
[2018-02-10 07:24] LABS: HEMATOCRIT 33.7 % (37-47); HEMOGLOBIN 10.4 g/dL (12.0-16.0); MEAN CELL VOLUME 73.6 fL (80-100); MEAN CORPUSCULAR HEMOGLOBIN 22.7 pg (25-34); MEAN CORPUSCULAR HGB CONC 30.9 g/dl (32-36); MEAN PLATELET VOLUME 9.1 fL (7.4-10.4); PLATELET COUNT 324 K/uL (130-400); RED CELL DISTRIBUTION WIDTH CV 17.1 % (11.5-14.5); RED CELL DISTRIBUTION WIDTH SD 46.4 fL (36.4-46.3); WHITE BLOOD COUNT 5.85 K/uL (4.8-10.8)
[2018-02-10 07:40] LABS: PTT PATIENT 63.4 SECONDS (21.0-31.0)
[2018-02-10 07:49] LABS: CREATININE 0.59 mg/dl (0.60-1.20); POTASSIUM 3.5 mmol/L (3.5-5.1)
[2018-02-10] MEDS: SERTRALINE HCL 100 MG TAB PO SCH (07:52)
[2018-02-10] MEDS: PANTOprazole SOD 40 MG TAB PO SCH (07:52)
--- NOTE | 2018-02-10 08:50 | ECHOCARDIOGRAM REPORT ---
*NOTICE TO RECEIVING LIBERTARIAN AGENCY This information is strictly Confidential and protected under [place] law. [place] law prohibits you from making any further disclosure of this information unless further disclosure is expressly permitted by the written consent of the person to whom it pertains or is authorized by law. A general authorization for the release of medical or other information is not sufficient for this purpose. Hospital accepts no responsibility if the information is made available to any other person, INCLUDING THE PATIENT. Interpretation Summary * Name: GERTRUDIS SHARMA Study Date: 02/10/2018 06:27 AM BP: 120/69 mmHg * Patient Location: C.2E\S\E211\S\1 HR: 65 * : 1985 (M/d/yyyy) Gender: Female Height: 71 in * Age: 32 yrs Ethnicity: CA Weight: 261 lb * Ordering Physician: Cruz Nichols * Referring Physician: Self, Referred * Performed By: Montse Butcher RDCS * * Reason For Study: BILATERAL PE * BSA: 2.4 m2 * -- Conclusions -- * The left ventricle is normal in size. * There is normal left ventricular wall thickness. * The left ventricular wall motion is normal. * Left ventricular systolic function is normal. * The right ventricle is normal in size and function. * Doppler findings do not suggest pulmonary hypertension. Procedure Details * A complete two-dimensional transthoracic echocardiogram was performed (2D, M-mode, Doppler and color flow Doppler). Left Ventricle * The left ventricle is normal in size. * There is normal left ventricular wall thickness. * Ejection Fraction = 55-60%. * Left ventricular systolic function is normal. * The left ventricular wall motion is normal. Right Ventricle * The right ventricle is normal in size and function. Atria * The left atrial size is normal. * Right atrial size is normal. * No ASD detected; PFO is not assessed. Mitral Valve * The mitral valve anatomy is normal. * There is no mitral valve stenosis. * There is trace mitral regurgitation. Tricuspid Valve * The tricuspid valve anatomy is normal. * There is no tricuspid stenosis. * There is trace tricuspid regurgitation. * Doppler findings do not suggest pulmonary hypertension. Aortic Valve * The aortic valve is trileaflet. * No hemodynamically significant valvular aortic stenosis. * No aortic regurgitation is present. Pulmonic Valve * The pulmonic valve is not well visualized. Great Vessels * The aortic root is normal size. Pericardium/Pleural * There is no pericardial effusion. Great Vessels * Normal inferior vena cava diameter and respiratory variation suggests normal central venous pressure. MMode 2D Measurements and Calculations IVSd 0.92 cm IVSs 1.6 cm LVIDd 4.4 cm LVIDs 3.0 cm LVPWd 1.3 cm LVPWs 1.8 cm IVS/LVPW 0.69 FS 31.9 % EDV(Teich) 88.0 ml ESV(Teich) 35.1 ml EF(Teich) 60.2 % EDV(cubed) 85.5 ml ESV(cubed) 27.0 ml EF(cubed) 68.4 % % IVS thick 76.2 % % LVPW thick 31.8 % LV mass(C)d 174.4 grams LV mass(C)dI 73.8 grams/m\S\2 LV mass(C)s 193.3 grams LV mass(C)sI 81.8 grams/m\S\2 SV(Teich) 52.9 ml SI(Teich) 22.4 ml/m\S\2 SV(cubed) 58.5 ml SI(cubed) 24.8 ml/m\S\2 Ao root diam 3.3 cm Ao root area 8.6 cm\S\2 LA dimension 3.4 cm LA/Ao 1.0 LVAd ap4 30.2 cm\S\2 LVLd ap4 8.7 cm EDV(MOD-sp4) 89.2 ml EDV(sp4-el) 89.7 ml LVAs ap4 18.5 cm\S\2 LVLs ap4 7.5 cm ESV(MOD-sp4) 38.9 ml ESV(sp4-el) 38.8 ml EF(MOD-sp4) 56.4 % EF(sp4-el) 56.7 % LVAd ap2 33.0 cm\S\2 LVLd ap2 8.9 cm EDV(MOD-sp2) 104.3 ml EDV(sp2-el) 104.2 ml LVAs ap2 19.4 cm\S\2 LVLs ap2 7.7 cm ESV(MOD-sp2) 44.3 ml ESV(sp2-el) 41.3 ml EF(MOD-sp2) 57.5 % EF(sp2-el) 60.3 % LVLd %diff 2.7 % EDV(MOD-bp) 99.1 ml LVLs %diff 2.9 % ESV(MOD-bp) 42.1 ml EF(MOD-bp) 57.5 % SV(MOD-sp4) 50.3 ml SI(MOD-sp4) 21.3 ml/m\S\2 SV(MOD-sp2) 60.0 ml SI(MOD-sp2) 25.4 ml/m\S\2 SV(MOD-bp) 57.0 ml SI(MOD-bp) 24.1 ml/m\S\2 SV(sp4-el) 50.9 ml SI(sp4-el) 21.5 ml/m\S\2 SV(sp2-el) 62.8 ml SI(sp2-el) 26.6 ml/m\S\2 Doppler Measurements and Calculations MV E max tammie 80.0 cm/sec MV A max tammie 44.1 cm/sec MV E/A 1.8 MV dec time 0.33 sec Ao V2 max 158.2 cm/sec Ao max PG 10.0 mmHg Ao max PG (full) 5.7 mmHg LV V1 max PG 4.3 mmHg LV V1 max 103.8 cm/sec
[2018-02-10] MEDS ORDERED: METOPROLOL TARTRATE 25 MG TAB PO SCH (09:00)
[2018-02-10] MEDS ORDERED: WARFARIN SOD 10 MG TAB PO SCH (16:00)
--- NOTE | 2018-02-10 17:28 | Progress Note ---
Internal Med Progress Note Date of Service: Feb 10, 2018. Provider Documentation: SUBJECTIVE: denies any chest pain or sob today no cough afebrile no nausea hemodynamics stable' likes to be on Coumadin rather than newer novel anticoagulants as they don't have effective anti dote OBJECTIVE: Vital Signs-as noted below Exam: General-alert and oriented. ENT-Normal hearing Neck-no neck masses Lungs-cta b/l no wheezing no crackles present Heart-S1 and S2 heard regular rate and rhythm no murmurs Abdomen-Soft bowel sounds present non tender no distension Extremities-no edema no erythema Neuro-alert and awake moves extremities Lab data as noted below. ASSESSMENT & PLAN: Acute B/L Pulmonary Emboli Likely secondary to OCP use CTA: Multiple bilateral pulmonary emboli. No CT evidence of right heart strain. No pulmonary infarct on iv heparin hemodynamics stable 'resting comfortably likes to be on Coumadin- will start today and f/u inr echo normal hypercoagulable work up as out patient f/u with heme/onco as out patient Incidental hepatic lesion on CT scan: follow-up with nonemergent MRI of the liver as outpatient PCOS: Previously on Metformin (Discontinued 2/2 GI symptoms) Hypothyroidism: On Levothyroxine TSH normal GERD: On PPI Anxiety disorder: To continue home meds DVT Px: On IV heparin ggt DISPOSITION monitor in tele Vital Signs: Date Time Temp Pulse Resp B/P (MAP) Pulse Ox O2 Delivery O2 Flow Rate FiO2 02/10/18 16:06 98 Room Air 02/10/18 15:48 36.4 86 20 130/89 (103) 96 Room Air 02/10/18 11:12 37.0 75 18 127/80 (96) 95 02/10/18 08:00 98 Room Air 02/10/18 07:58 36.8 72 18 120/69 (86) 98 02/10/18 04:29 37.0 71 17 129/75 (93) 94 Room Air 02/10/18 04:00 97 Room Air 02/10/18 00:23 37.1 74 18 142/80 (100) 97 Room Air 02/10/18 00:01 97 Room Air 02/09/18 19:15 36.8 99 18 121/81 (94) 97 Room Air 02/09/18 18:51 37.0 99 19 141/90 94 02/09/18 18:35 99 3/29/18 18:12 103 19 141/90 94 Room Air 02/09/18 17:47 96 Room Air Lab Results: Results Past 24 Hours Test 02/09/18 22:15 02/09/18 23:27 02/10/18 07:04 Range/Units Troponin I < 0.015 0-0.045 ng/ml Activated Partial Thromboplast Time 31.5 63.4 21.0-31.0 SECONDS Partial Thromboplastin Ratio 1.2 2.4 White Blood Count 5.85 4.8-10.8 K/uL Red Blood Count 4.58 4.2-5.4 M/uL Hemoglobin 10.4 12.0-16.0 g/dL Hematocrit 33.7 37-47 % Mean Corpuscular Volume 73.6 80-100 fL Mean Corpuscular Hemoglobin 22.7 25-34 pg Mean Corpuscular Hemoglobin Concent 30.9 32-36 g/dl RDW Standard Deviation 46.4 36.4-46.3 fL RDW Coefficient of Variation 17.1 11.5-14.5 % Platelet Count 324 130-400 K/uL Mean Platelet Volume 9.1 7.4-10.4 fL Sodium Level 138 136-145 mmol/L Potassium Level 3.5 3.5-5.1 mmol/L Chloride Level 107 98-107 mmol/L Carbon Dioxide Level 26 21-32 mmol/L Anion Gap 6.0 3-11 mmol/L Blood Urea Nitrogen 5 7-18 mg/dl Creatinine 0.59 0.60-1.20 mg/dl Est Creatinine Clear Calc Drug Dose 191.8 ml/min Estimated GFR () 139.6 Estimated GFR (Non- 120.4 BUN/Creatinine Ratio 9.0 10-20 Random Glucose 91 70-99 mg/dl Calcium Level 8.0 8.5-10.1 mg/dl Magnesium Level 2.1 1.8-2.4 mg/dl Thyroid Stimulating Hormone (TSH) 1.120 0.300-4.500 uIu/ml Free Thyroxine 1.01 0.80-1.60 ng/dl
[2018-02-10] MEDS: METOPROLOL TARTRATE 25 MG TAB PO SCH (21:03)
[2018-02-11] VITALS (8 sets, daily range): BP systolic 120–139; BP diastolic 70–87; PULSE 64–78; TEMP 36.7–36.8; O2SAT 96–98
[2018-02-11] MEDS: LEVOTHYROXINE 25 MCG TAB PO SCH (04:03)
[2018-02-11 06:11] LABS: HEMATOCRIT 32.1 % (37-47); HEMOGLOBIN 9.9 g/dL (12.0-16.0); MEAN CORPUSCULAR HEMOGLOBIN 22.8 pg (25-34); MEAN CORPUSCULAR HGB CONC 30.8 g/dl (32-36); MEAN PLATELET VOLUME 8.7 fL (7.4-10.4); PLATELET COUNT 338 K/uL (130-400); RED CELL DISTRIBUTION WIDTH CV 17.3 % (11.5-14.5); RED CELL DISTRIBUTION WIDTH SD 47.1 fL (36.4-46.3); WHITE BLOOD COUNT 6.25 K/uL (4.8-10.8)
[2018-02-11 06:29] LABS: PTT PATIENT 61.3 SECONDS (21.0-31.0)
[2018-02-11] MEDS: PANTOprazole SOD 40 MG TAB PO SCH (08:36)
[2018-02-11] MEDS: SERTRALINE HCL 100 MG TAB PO SCH (08:36)
[2018-02-11] MEDS: HEPARIN 25,000 UNIT/500ML D5W 500 ML IV SCH ×2 (11:09→23:50)
[2018-02-11] MEDS: TRAMADOL HCL 50 MG TAB PO PRN (14:56)
[2018-02-11] MEDS: WARFARIN SOD 5 MG TAB PO SCH (16:32)
--- NOTE | 2018-02-11 17:32 | Progress Note ---
Internal Med Progress Note Date of Service: Feb 11, 2018. Provider Documentation: SUBJECTIVE: sitting on the chair comfortably denies any chest pain or sob no cough no nausea slept ok' having menses but no abnormal bleeding OBJECTIVE: Vital Signs-as noted below Exam: General-alert and oriented. ENT-Normal hearing Neck-no neck masses Lungs-cta b/l no wheezing no crackles present Heart-S1 and S2 heard regular rate and rhythm no murmurs Abdomen-Soft bowel sounds present non tender no distension Extremities-no edema no erythema Neuro-alert and awake moves extremities Lab data as noted below. ASSESSMENT & PLAN: Acute B/L Pulmonary Emboli Likely secondary to OCP use CTA: Multiple bilateral pulmonary emboli. No CT evidence of right heart strain. No pulmonary infarct on iv heparin hemodynamics stable 'resting comfortably echo normal hypercoagulable work up as out patient f/u with heme/onco as out patient started on Coumadin f/u inr Incidental hepatic lesion on CT scan: follow-up with nonemergent MRI of the liver as outpatient PCOS: Previously on Metformin (Discontinued 2/2 GI symptoms) Hypothyroidism: On Levothyroxine TSH normal GERD: On PPI Anxiety disorder: To continue home meds DVT Px: On IV heparin ggt and coumadin DISPOSITION monitor in tele to be determined Vital Signs: Date Time Temp Pulse Resp B/P (MAP) Pulse Ox O2 Delivery O2 Flow Rate FiO2 02/11/18 16:00 Room Air 02/11/18 15:46 36.7 78 20 125/87 (100) 98 Room Air 02/11/18 11:50 36.7 68 18 120/70 (87) 98 Room Air 02/11/18 11:30 Room Air 02/11/18 08:00 Room Air 02/11/18 07:54 36.8 65 16 125/73 (90) 96 Room Air 02/11/18 04:02 36.8 66 16 126/73 (90) 97 Room Air 02/11/18 04:00 98 Room Air 02/11/18 00:00 98 Room Air 02/10/18 23:46 36.8 76 17 106/82 (90) 97 Room Air 02/10/18 20:17 36.6 76 20 155/86 (109) 97 Room Air 02/10/18 20:00 98 Room Air Lab Results: Results Past 24 Hours Test 02/11/18 05:47 Range/Units White Blood Count 6.25 4.8-10.8 K/uL Red Blood Count 4.34 4.2-5.4 M/uL Hemoglobin 9.9 12.0-16.0 g/dL Hematocrit 32.1 37-47 % Mean Corpuscular Volume 74.0 80-100 fL Mean Corpuscular Hemoglobin 22.8 25-34 pg Mean Corpuscular Hemoglobin Concent 30.8 32-36 g/dl RDW Standard Deviation 47.1 36.4-46.3 fL RDW Coefficient of Variation 17.3 11.5-14.5 % Platelet Count 338 130-400 K/uL Mean Platelet Volume 8.7 7.4-10.4 fL Prothrombin Time 10.4 9.0-12.0 SECONDS Prothromb Time International Ratio 1.0 0.9-1.1 Activated Partial Thromboplast Time 61.3 21.0-31.0 SECONDS Partial Thromboplastin Ratio 2.4
[2018-02-11] MEDS: METOPROLOL TARTRATE 25 MG TAB PO SCH (20:57)
[2018-02-12 04:04] VITALS: BP 109/69; PULSE 53; TEMP 37.1; O2SAT 91
[2018-02-12 06:46] LABS: INR 1.6 (0.9-1.1)
[2018-02-12] MEDS: LEVOTHYROXINE 25 MCG TAB PO SCH (07:09)
[2018-02-12] MEDS: PANTOprazole SOD 40 MG TAB PO SCH (07:46)
[2018-02-12] MEDS: SERTRALINE HCL 100 MG TAB PO SCH (07:46)
[2018-02-12] MEDS: HEPARIN 25,000 UNIT/500ML D5W 500 ML IV SCH ×2 (07:48→13:35)
[2018-02-12 07:49] VITALS: BP 108/59; PULSE 55; TEMP 36.7; O2SAT 98
[2018-02-12 11:37] VITALS: BP 124/73; PULSE 60; TEMP 36.7; O2SAT 97
[2018-02-12 16:16] VITALS: BP 128/78; PULSE 78; TEMP 36.7; O2SAT 96
[2018-02-12] MEDS: WARFARIN SOD 5 MG TAB PO SCH (16:22)
--- NOTE | 2018-02-12 18:24 | Progress Note ---
Internal Med Progress Note Date of Service: Feb 12, 2018. Provider Documentation: SUBJECTIVE: sitting on the chair comfortably no pain no sob no cough no nausea' having menses no abnormal bleeding OBJECTIVE: Vital Signs-as noted below Exam: General-alert and oriented. ENT-Normal hearing Neck-no neck masses Lungs-cta b/l no wheezing no crackles present Heart-S1 and S2 heard regular rate and rhythm no murmurs Abdomen-Soft bowel sounds present non tender no distension Extremities-no edema no erythema Neuro-alert and awake moves extremities Lab data as noted below. ASSESSMENT & PLAN: Acute B/L Pulmonary Emboli Likely secondary to OCP use CTA: Multiple bilateral pulmonary emboli. No CT evidence of right heart strain. No pulmonary infarct on iv heparin hemodynamics stable 'resting comfortably echo normal hypercoagulable work up as out patient f/u with heme/onco as out patient started on Coumadin inr 1.6 today stable possible d/c in am with Lovenox bridge Incidental hepatic lesion on CT scan: follow-up with nonemergent MRI of the liver as outpatient Anemia? f/u labs PCOS: Previously on Metformin (Discontinued 2/2 GI symptoms) Hypothyroidism: On Levothyroxine TSH normal GERD: On PPI Anxiety disorder: To continue home meds DVT Px: On IV heparin ggt and coumadin DISPOSITION monitor in tele ambulate in hallway possible d/c in am Vital Signs: Date Time Temp Pulse Resp B/P (MAP) Pulse Ox O2 Delivery O2 Flow Rate FiO2 02/12/18 16:16 36.7 78 20 128/78 (95) 96 02/12/18 16:00 Room Air 02/12/18 12:00 Room Air 02/12/18 11:37 36.7 60 16 124/73 (90) 97 Room Air 02/12/18 08:00 Room Air 02/12/18 07:49 36.7 55 16 108/59 (75) 98 Room Air 02/12/18 04:04 37.1 53 18 109/69 (82) 91 Room Air 02/12/18 04:00 Room Air 02/12/18 00:00 Room Air 02/11/18 23:40 36.7 64 18 136/77 (96) 96 Room Air 02/11/18 20:11 36.7 74 20 139/72 (94) 98 Room Air 02/11/18 20:00 Room Air Lab Results: Results Past 24 Hours Test 02/12/18 06:04 02/12/18 13:39 Range/Units Prothrombin Time 16.9 9.0-12.0 SECONDS Prothromb Time International Ratio 1.6 0.9-1.1 Activated Partial Thromboplast Time 90.0 59.0 21.0-31.0 SECONDS Partial Thromboplastin Ratio 3.5 2.3
[2018-02-12 19:38] VITALS: BP 135/76; PULSE 76; TEMP 36.7; O2SAT 98
[2018-02-12] MEDS: METOPROLOL TARTRATE 25 MG TAB PO SCH (20:56)
[2018-02-12 23:48] VITALS: BP 128/73; PULSE 63; TEMP 36.7; O2SAT 99
[2018-02-13] MEDS: HEPARIN 25,000 UNIT/500ML D5W 500 ML IV SCH (02:34)
[2018-02-13 03:59] VITALS: BP 139/72; PULSE 64; TEMP 36.7; O2SAT 98
[2018-02-13 05:13] LABS: HEMATOCRIT 32.8 % (37-47); HEMOGLOBIN 10.2 g/dL (12.0-16.0); MEAN CELL VOLUME 74.4 fL (80-100); MEAN CORPUSCULAR HEMOGLOBIN 23.1 pg (25-34); MEAN CORPUSCULAR HGB CONC 31.1 g/dl (32-36); PLATELET COUNT 401 K/uL (130-400); RED CELL DISTRIBUTION WIDTH CV 17.1 % (11.5-14.5); RED CELL DISTRIBUTION WIDTH SD 47.1 fL (36.4-46.3)
[2018-02-13 05:32] LABS: INR 2.2 (0.9-1.1)
[2018-02-13 05:47] LABS: PTT PATIENT 75.8 SECONDS (21.0-31.0)
[2018-02-13] MEDS: LEVOTHYROXINE 25 MCG TAB PO SCH (05:53)
[2018-02-13 06:49] VITALS: BP 112/60; PULSE 81; TEMP 36.7; O2SAT 98
[2018-02-13] MEDS: SERTRALINE HCL 100 MG TAB PO SCH (08:24)
[2018-02-13] MEDS: PANTOprazole SOD 40 MG TAB PO SCH (08:24)
[2018-02-13 11:45] VITALS: BP 119/85; PULSE 84; TEMP 36.7; O2SAT 98
[2018-02-13] MEDS ORDERED: ENOXAPARIN 120 MG/0.8 ML SYR SQ ONE (12:00)
[2018-02-13] MEDS ORDERED: WARF3TAB PO (12:10)
[2018-02-13] MEDS ORDERED: WARF2TAB PO (12:10)
[2018-02-13] MEDS ORDERED: ENOX40IN SQ ×2 (12:11→12:29)
[2018-02-13 12:14] LABS: PTT PATIENT 60.4 SECONDS (21.0-31.0)
--- NOTE | 2018-02-13 12:16 | Discharge Instructions ---
Discharge Instructions Date of Service Feb 13, 2018. Admission Reason for Admission: Bilateral Pulmonary Embolism Discharge Discharge Diagnosis / Problem: (1) Bilateral pulmonary embolism VTE Date & Time Date of VTE Diagnosis: Feb 09, 2018 Time of VTE Diagnosis: 16:42 Discharge Goals Goal(s): Decrease discomfort, Improve function Activity Recommendations Activity Limitations: resume your previous activity (as tolerated) Lifting Limitations: no more than 5 pounds (until seen by pcp) . Instructions / Follow-Up Instructions / Follow-Up FOLLOWUP WITH FAMILY DOCTOR ON February AT 1:45PM FOLLOWUP WITH COUMADIN CLINIC OR FAMILY DOCTOR FOR COUMADIN DOSING.( family doctor notified) TO TAKE LOVENOX SHOTS TODAY AND TOMORROW TWICE DAILY UNLESS ANY FURTHER INSTRUCTIONS [facility] FAMILY DOCTOR/COUMADIN CLINIC BASED ON PT/INR. LAB: PT/INR IN 1-2 DAYS AND FOLLOW RESULTS WITH COUMADIN CLINIC OR FAMILY DOCTOR. TO TAKE COUMADIN 5MG DAILY IN PM UNTIL FURTHER INSTRUCTIONS FROM FAMILY DOCTOR OR COUMADIN CLINIC ( PRESCRIBED 3MG AND 2MG TABLETS). TO STOP TAKING CONTROL PILLS. HEME/ONCO REFERRAL PER FAMILY DOCTOR. DURATION OF COUMADIN PER FAMILY DOCTOR OR HEME/ONCO BASED ON FURTHER WORKUP Medication Instructions: * Warfarin is a medicine prescribed to prevent blood clots * Warfarin will thin your blood and help prevent new clots * Take your medications exactly as directed * Never skip a dose. Never take a double dose. If you miss a dose, take it as soon as you remember * It is important for your doctor to monitor your prothrombin time (PT). This is a lab test * Keep your appointment for lab tests Risk of Adverse Drug Reactions and Interactions: * Warfarin increases your risk of bleeding * The food you eat and other medications you take can affect how Warfarin works in your body * Ask your doctor about daily aspirin therapy * It is very important to talk with your doctor about all of the other medicines , antibiotics, vitamins or herbal products that you are taking * All of your medication must be approved by your doctor, including new medicines, as well as medicines you have taken before you started taking Warfarin Diet: * In order for Warfarin to work properly, it is important to keep your intake of Vitamin K as consistent as possible * You should avoid any sudden change in Vitamin K intake * Report any significant changes in your diet or weight to your doctor Call your Primary Care doctor if you experience any of the following: * Swelling or Pain in your leg * Sudden, continuous pain deep in a muscle * Pain that worsens when you are active or when you stand still for a long time * Chest Pain * Sudden Shortness of Breath * Rapid or pounding heart beat * Fainting * Dizziness * Cough with blood or bloody sputum * Sweating more than normal * Bruises * Heavy or uncontrolled bleeding * Blood in your urine, stool or vomit * Black or tarry stools Caring for Your Self at Home: * Avoid sitting, standing or lying down for long periods without moving your legs and feet * When traveling by car, stop to get out and move around at least once every 3 hours * On long airplane, train or bus rides, get up and move around when possible * If you can't get up, wiggle your toes and tighten your calves to keep your blood moving Follow Up: It is important for you to keep your follow up appointments with your medical provider. Current Hospital Diet Patient's current hospital diet: Regular Diet Discharge Diet Recommended Diet: Regular Diet Pending Studies Studies pending at discharge: no Work Instructions Additional Instructions: LEAVE FROM WORK FOR TWO WEEKS Medical Emergencies . Who to Call and When: Medical Emergencies: If at any time you feel your situation is an emergency, please call 911 immediately. . Non-Emergent Contact Non-Emergency issues call your: Primary Care Provider . . "Provider Documentation" section prepared by Eric Monroy. . VTE Core Measure Reason no anticoag overlap I/P: Treatment provided - N/A Reason no anticoag overlap @DC: Treatment provided - N/A
[2018-02-13 12:39] VITALS: BP 119/85; PULSE 84; TEMP 36.7; O2SAT 98
--- NOTE | 2018-02-13 14:46 | Progress Note ---
Internal Med Progress Note Date of Service: Feb 13, 2018. Provider Documentation: SUBJECTIVE: resting comfortably no chest pain or sob afebrile hemodynamics stable ok for discharge OBJECTIVE: Vital Signs-as noted below Exam: General-alert and oriented. ENT-Normal hearing Neck-no neck masses Lungs-cta b/l no wheezing no crackles present Heart-S1 and S2 heard regular rate and rhythm no murmurs Abdomen-Soft bowel sounds present non tender no distension Extremities-no edema no erythema Neuro-alert and awake moves extremities Lab data as noted below. ASSESSMENT & PLAN: Acute B/L Pulmonary Emboli Likely secondary to OCP use CTA: Multiple bilateral pulmonary emboli. No CT evidence of right heart strain. No pulmonary infarct on iv heparin hemodynamics stable 'resting comfortably echo normal hypercoagulable work up as out patient f/u with heme/onco as out patient started on Coumadin inr 2.2 today to bridge with Lovenox today and tomorrow for total 5days and also overlapping with Coumadin for couple of days close followup with pcp and Coumadin clinic discharged on Coumadin 5mg daily until further instructions from pcp/Coumadin clinic to check pt/inr next two days and further adjustment of Coumadin dosing. Incidental hepatic lesion on CT scan: follow-up with nonemergent MRI of the liver as outpatient notified PCP Anemia? f/u labs PCOS: Previously on Metformin (Discontinued 2/2 GI symptoms) Hypothyroidism: On Levothyroxine TSH normal GERD: On PPI Anxiety disorder: To continue home meds discharged home Vital Signs: Date Time Temp Pulse Resp B/P (MAP) Pulse Ox O2 Delivery O2 Flow Rate FiO2 02/13/18 12:39 36.7 84 16 98 Room Air 02/13/18 12:00 Room Air 02/13/18 11:45 36.7 84 16 119/85 (96) 98 Room Air 02/13/18 08:00 Room Air 02/13/18 06:49 36.7 81 20 112/60 (77) 98 Room Air 02/13/18 04:00 Room Air 02/13/18 03:59 36.7 64 17 139/72 (94) 98 Room Air 02/13/18 00:00 Room Air 02/12/18 23:48 36.7 63 17 128/73 (91) 99 Room Air 02/12/18 20:00 Room Air 02/12/18 19:38 36.7 76 20 135/76 (95) 98 Room Air 02/12/18 16:16 36.7 78 20 128/78 (95) 96 02/12/18 16:00 Room Air Lab Results: Results Past 24 Hours Test 02/13/18 04:36 02/13/18 11:45 Range/Units White Blood Count 8.00 4.8-10.8 K/uL Red Blood Count 4.41 4.2-5.4 M/uL Hemoglobin 10.2 12.0-16.0 g/dL Hematocrit 32.8 37-47 % Mean Corpuscular Volume 74.4 80-100 fL Mean Corpuscular Hemoglobin 23.1 25-34 pg Mean Corpuscular Hemoglobin Concent 31.1 32-36 g/dl RDW Standard Deviation 47.1 36.4-46.3 fL RDW Coefficient of Variation 17.1 11.5-14.5 % Platelet Count 401 130-400 K/uL Mean Platelet Volume 9.0 7.4-10.4 fL Prothrombin Time 22.7 9.0-12.0 SECONDS Prothromb Time International Ratio 2.2 0.9-1.1 Activated Partial Thromboplast Time 75.8 60.4 21.0-31.0 SECONDS Partial Thromboplastin Ratio 2.9 2.3
--- NOTE | 2018-02-13 14:50 | Discharge Summary ---
Discharge Summary Date of Service Feb 13, 2018. Discharge Summary Admission Date: Feb 09, 2018 at 18:15 Discharge Date: Feb 13, 2018 Discharge Disposition: Home Principal Diagnosis: ACUTE B/L PE Secondary Diagnoses/Problems: PCOS, Hypothyroidism, GERD, anxiety disorder, LYME DISEASE Procedures: LOWER EXT US: There is no sonographic evidence of deep venous thrombosis identified in the left lower extremity. CTA CHEST: 1. Multiple bilateral pulmonary emboli. No CT evidence of right heart strain. No pulmonary infarct. Findings discussed with Dr. Villanueva at time of dictation. 2. Apparent 2.5 cm hypodense hepatic lesion which is partially imaged on this exam. A follow-up nonemergent MRI of the liver could be obtained. This could reflect a lesion or focal fat. 3. 2.7 cm chondroid lesion within the right humeral head which statistically reflects an enchondroma. CT HEAD: 1. No acute intracranial abnormality. ECHO: The left ventricle is normal in size. * There is normal left ventricular wall thickness. * The left ventricular wall motion is normal. * Left ventricular systolic function is normal. * The right ventricle is normal in size and function. * Doppler findings do not suggest pulmonary hypertension. Medication Reconciliation New Medications: Enoxaparin (Lovenox) 40 Mg/0.4 Ml Inj 120 MG SQ BID, #3 SYR Warfarin Sodium (Coumadin) 2 Mg Tab 2 MG PO DAILY, #30 TAB 1 Refill coumadin 5mg po daily until further instructions from coumadin clinic Warfarin Sodium (Coumadin) 3 Mg Tab 3 MG PO DAILY for 30 Days, #30 TAB 1 Refill coumadin 5mg po daily until further instructions from coumadin clinic Continued Medications: Fluticasone Propionate (Nasal) (Flonase Allergy Relief) 50 Mcg/Act Spr Levothyroxine Sodium (Synthroid) 25 Mcg Tab 25 MCG PO QAM Metoprolol Tartrate (Lopressor) 25 Mg Tab 25 MG PO DAILY, TAB Multivitamin (Multivitamin) Tab 1 TAB PO QAM Omeprazole (Prilosec) 20 Mg Capcr 20 MG PO QAM Sertraline (Zoloft) 100 Mg Tab 100 MG PO QAM Discontinued Medications: Control Pills ( Control Pills) Tab 1 TAB PO QAM Admission Information HPI (per Admitting provider): Patient is a 32 yr female with PMH of PCOS, Hypothyroidism, GERD, anxiety disorder and other problems presents with history of Intermittent chest pain, SOB, palpitations, dizziness, nausea and diaphoresis. Patient reports she has intermittent chest pain since last 1 1/2 years (Since being diagnosed to have Lyme's disease at that time) and was thought to be secondary to anxiety. Patient noticed worsening of chest pain since last 3 days. Reports chest pain is dull, retrosternal, pressure like which improves with rest and is associated with nausea, vomiting, diaphoresis, dizziness, palpitations and chills. She also reports Left leg pain behind her left knee and was seen at Urgent Care and was referred to ED for further evaluation. CTA showed findings suggestive of multiple bilateral pulmonary emboli and patient admits to taking OCPs for contraception. Denies any history of Orthopnea, PND, pedal edema, cough, hemoptysis, fever, chills, recent travel. She reports that started to have her periods today. Physical Exam (per Admitting): General Appearance: WD/WN, no apparent distress, + obese Head: normocephalic, atraumatic Eyes: normal inspection, PERRL, EOMI, sclerae normal ENT: normal ENT inspection, hearing grossly normal Neck: supple, trachea midline Respiratory/Chest: chest non-tender, lungs clear, normal breath sounds, no respiratory distress, no accessory muscle use Cardiovascular: regular rate, rhythm, no edema, no murmur, + tachycardia Abdomen/GI: normal bowel sounds, non tender, soft Back: normal inspection Extremities/Musculoskelatal: normal inspection, no pedal edema, + pertinent finding (Mild tendeness behind Left knee, No erythema, swelling) Neurologic/Psych: correspondence dictator II-XII nml as tested, no motor/sensory deficits, alert , normal mood/affect, oriented x 3 Skin: normal color, warm/dry Hospital Course 32F PRESENTED WITH CHEST PAIN AND FOUND TO HAVE B/L PE. Acute B/L Pulmonary Emboli Likely secondary to OCP use CTA: Multiple bilateral pulmonary emboli. No CT evidence of right heart strain. No pulmonary infarct on iv heparin hemodynamics stable 'resting comfortably echo normal hypercoagulable work up as out patient f/u with heme/onco as out patient started on Coumadin inr 2.2 today to bridge with Lovenox today and tomorrow for total 5days and also overlapping with Coumadin for couple of days close followup with pcp and Coumadin clinic discharged on Coumadin 5mg daily until further instructions from pcp/Coumadin clinic to check pt/inr next two days and further adjustment of Coumadin dosing. Incidental hepatic lesion on CT scan: follow-up with nonemergent MRI of the liver as outpatient notified PCP Anemia? f/u labs PCOS: Previously on Metformin (Discontinued 2/2 GI symptoms) Hypothyroidism: On Levothyroxine TSH normal GERD: On PPI Anxiety disorder: To continue home meds discharged home Total time spent on discharge = 40MINUTES This includes examination of the patient, discharge planning, medication reconciliation, and communication with other providers. Discharge Instructions Discharge Instructions Date of Service Feb 13, 2018. Admission Reason for Admission: Bilateral Pulmonary Embolism Discharge Discharge Diagnosis / Problem: (1) Bilateral pulmonary embolism VTE Date & Time Date of VTE Diagnosis: Feb 09, 2018 Time of VTE Diagnosis: 16:42 Discharge Goals Goal(s): Decrease discomfort, Improve function Activity Recommendations Activity Limitations: resume your previous activity (as tolerated) Lifting Limitations: no more than 5 pounds (until seen by pcp) . Instructions / Follow-Up Instructions / Follow-Up FOLLOWUP WITH FAMILY DOCTOR ON February AT 1:45PM FOLLOWUP WITH COUMADIN CLINIC OR FAMILY DOCTOR FOR COUMADIN DOSING.( family doctor notified) TO TAKE LOVENOX SHOTS TODAY AND TOMORROW TWICE DAILY UNLESS ANY FURTHER INSTRUCTIONS [facility] FAMILY DOCTOR/COUMADIN CLINIC BASED ON PT/INR. LAB: PT/INR IN 1-2 DAYS AND FOLLOW RESULTS WITH COUMADIN CLINIC OR FAMILY DOCTOR. TO TAKE COUMADIN 5MG DAILY IN PM UNTIL FURTHER INSTRUCTIONS FROM FAMILY DOCTOR OR COUMADIN CLINIC ( PRESCRIBED 3MG AND 2MG TABLETS). TO STOP TAKING CONTROL PILLS. HEME/ONCO REFERRAL PER FAMILY DOCTOR. DURATION OF COUMADIN PER FAMILY DOCTOR OR HEME/ONCO BASED ON FURTHER WORKUP Medication Instructions: * Warfarin is a medicine prescribed to prevent blood clots * Warfarin will thin your blood and help prevent new clots * Take your medications exactly as directed * Never skip a dose. Never take a double dose. If you miss a dose, take it as soon as you remember * It is important for your doctor to monitor your prothrombin time (PT). This is a lab test * Keep your appointment for lab tests Risk of Adverse Drug Reactions and Interactions: * Warfarin increases your risk of bleeding * The food you eat and other medications you take can affect how Warfarin works in your body * Ask your doctor about daily aspirin therapy * It is very important to talk with your doctor about all of the other medicines , antibiotics, vitamins or herbal products that you are taking * All of your medication must be approved by your doctor, including new medicines, as well as medicines you have taken before you started taking Warfarin Diet: * In order for Warfarin to work properly, it is important to keep your intake of Vitamin K as consistent as possible * You should avoid any sudden change in Vitamin K intake * Report any significant changes in your diet or weight to your doctor Call your Primary Care doctor if you experience any of the following: * Swelling or Pain in your leg * Sudden, continuous pain deep in a muscle * Pain that worsens when you are active or when you stand still for a long time * Chest Pain * Sudden Shortness of Breath * Rapid or pounding heart beat * Fainting * Dizziness * Cough with blood or bloody sputum * Sweating more than normal * Bruises * Heavy or uncontrolled bleeding * Blood in your urine, stool or vomit * Black or tarry stools Caring for Your Self at Home: * Avoid sitting, standing or lying down for long periods without moving your legs and feet * When traveling by car, stop to get out and move around at least once every 3 hours * On long airplane, train or bus rides, get up and move around when possible * If you can't get up, wiggle your toes and tighten your calves to keep your blood moving Follow Up: It is important for you to keep your follow up appointments with your medical provider. Current Hospital Diet Patient's current hospital diet: Regular Diet Discharge Diet Recommended Diet: Regular Diet Pending Studies Studies pending at discharge: no Work Instructions Additional Instructions: LEAVE FROM WORK FOR TWO WEEKS Medical Emergencies . Who to Call and When: Medical Emergencies: If at any time you feel your situation is an emergency, please call 911 immediately. . Non-Emergent Contact Non-Emergency issues call your: Primary Care Provider . . "Provider Documentation" section prepared by Eric Monroy. . VTE Core Measure Reason no anticoag overlap I/P: Treatment provided - N/A Reason no anticoag overlap @DC: Treatment provided - N/A Additional Copies To Nikky Yuen M.D.
== END 2018-02-13 13:15 | disposition home or self-care (01) | DRG 176 ==
LOC: EDBD 13:15 → C.EDA 13:16 → C.2E 18:15 → ENRESERV 18:35
PROVIDERS: ADMIT Internal Medicine; ATTEND Internal Medicine
DX: I26.99 Other pulmonary embolism without acute cor pulmonale (principal); T38.4X5A Adverse effect of oral contraceptives, initial encounter; D64.9 Anemia, unspecified; R93.2 Abnormal findings on diagnostic imaging of liver and biliary tract; E28.2 Polycystic ovarian syndrome; E03.9 Hypothyroidism, unspecified; K21.9 Gastro-esophageal reflux disease without esophagitis; F41.9 Anxiety disorder, unspecified; Z86.19 Personal history of other infectious and parasitic diseases; Z79.3 Long term (current) use of hormonal contraceptives; Z79.899 Other long term (current) drug therapy; Z91.010 Allergy to peanuts; Z82.49 Family history of ischemic heart disease and other diseases of the circulatory system; Z83.3 Family history of diabetes mellitus; Z83.49 Family history of other endocrine, nutritional and metabolic diseases

== ENCOUNTER 2018-03-27 14:10 | Emergency (ER) | payer OTHER ==
[~2018-03-27] VITALS: Ht 180.3 cm; Wt 130.0 kg
[~2018-03-27 14:10] MED LIST changes: -BCPILLS PO; +ENOX40IN SQ; +LPR25 PO; +PRLSR20 PO; +WARF2TAB PO; +WARF3TAB PO
[2018-03-27 14:16] VITALS: TEMP 36.7; Ht 180.3 cm; Wt 130.0 kg
[2018-03-27] MEDS ORDERED: ACETAMINOPHEN 500 MG TAB PO STA (15:11)
--- NOTE | 2018-03-27 15:21 | EMERGENCY ROOM VISIT NOTE ---
History First contact with patient: 14:54 Chief Complaint: RESPIRATORY PROBLEMS Stated Complaint: CHEST LUNG PAIN Nursing Triage Summary: C/O left sided chest and under left rib pain. SOB. Recent PEs. On coumadin. History of Present Illness The patient is a 33 year old female who presents to the Emergency Room with complaints of chest pain and dyspnea all day today. The patient states she was at work and walking around the office when she spontaneously began experiencing chest pain and dyspnea. 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 She does report some mild dizziness associated with the symptoms. She states last night, she was "not feeling right". She denies any symptoms at that time. She has had ongoing occasional chest pain since leaving , but denies dyspnea. She does have a history of bilateral PEs, and was admitted to the hospital at the end of January. She is currently on Coumadin, and states her last INR was checked last week and was 1.9. She states she has not had any chest pain or dyspnea since approximately 1 week after leaving the hospital. She also reports intermittent headaches on and off since discharge from the hospital. The patient states her PCP has been managing her Coumadin. She did see a dough cutting machine operator and Dr. Micky Treviño, last week for the first time. She came straight here today with her symptoms and did not contact the dough cutting machine operator. She states she does have labs pending regarding possible coagulation disorder. The patient describes the pain as a soreness, and states it is tender to palpation. It is located in the left anterior and lateral aspects. She denies any recent illness including upper respiratory infection, sore throat, fever, chills, nausea, vomiting, diarrhea, constipation, abdominal pain, or other concerning symptoms. She has taken no medications for her discomfort. Review of Systems A complete 10 point review of systems was reviewed with the patient with pertinent positives and negatives as per history of present illness. All else were negative. Past Medical/Surgical History Medical Problems: (1) Lyme disease Family History Patient reports no known family medical history. Social History Smoking Status: Never Smoker Alcohol Use: none Drug Use: none Marital Status: Occupation Status: employed Current/Historical Medications Scheduled Enoxaparin (Lovenox), 120 MG SQ BID Levothyroxine Sodium (Synthroid), 25 MCG PO QAM Metoprolol Tartrate (Lopressor), 25 MG PO DAILY Multivitamin (Multivitamin), 1 TAB PO QAM Omeprazole (Prilosec), 20 MG PO QAM Sertraline (Zoloft), 100 MG PO QAM Warfarin Sodium (Coumadin), 2 MG PO DAILY Warfarin Sodium (Coumadin), 3 MG PO DAILY Miscellaneous Medications Fluticasone Propionate (Nasal) (Flonase Allergy Relief) Physical Exam Vital Signs Date Time Temp Pulse Resp B/P (MAP) Pulse Ox O2 Delivery O2 Flow Rate FiO2 03/27/18 16:20 75 18 135/78 99 03/27/18 16:02 75 18 135/78 99 Room Air 03/27/18 15:20 71 18 142/70 96 Room Air 03/27/18 15:01 80 03/27/18 14:54 Room Air 03/27/18 14:16 36.7 91 16 148/92 99 Room Air Physical Exam VITALS: Vitals are noted on the nurse's note and reviewed by myself. Vital signs stable. GENERAL: This is a 33-year-old white female, in no acute distress, nondiaphoretic, well-developed well-nourished. SKIN: The skin was without rashes, erythema, edema, or bruising. There is no tenting of the skin. Capillary reflex less than 2 seconds. HEAD: Normocephalic atraumatic. EARS: External auditory canals clear, tympanic membranes pearly hernandez without erythema or effusion bilaterally. No hemotympanum. No lozano sign. EYES: Pupils equal round and reactive to light and accommodation. Conjunctivae without injection, sclerae without icterus. Extraocular movements intact. No raccoon eyes. NOSE: Patent, turbinates without inflammation or discharge. No sinus tenderness. MOUTH: Mucous membranes moist. Tonsils are not enlarged. Pharynx without erythema or exudate. Uvula midline. Airway patent. Tongue does not deviate. NECK: Supple without nuchal rigidity. No lymphadenopathy. No thyromegaly. Cervical spine is nontender. No JVD. HEART: Regular rate and rhythm without murmurs gallops or rubs. LUNGS: Clear to auscultation bilaterally without wheezes, rales or rhonchi. No dullness to percussion. No retractions or accessory muscle use. No tachypnea noted. ABDOMEN: Positive bowel sounds x 4. Normal tympanic percussion. Soft, nontender, without masses or organomegaly. Katz sign negative. No guarding or rebound tenderness. MUSCULOSKELETAL: Tenderness to palpation of the right anterior and lateral chest. This is reproducing the pain the patient describes. No muscle atrophy, erythema, or edema noted. Full range of motion without joint tenderness in all extremities. No tenderness to palpation except as noted. Normal gait. Strength 5/5 throughout. NEURO: Patient was alert and oriented to person place and time. Normal sensation to light and sharp touch. Deep tendon reflexes 2+ throughout. No focal neurological deficits. Normal Mini Mental Status Examination. Negative Romberg and Pronator Drift. Medical Decision & Procedures ER Provider Diagnostic Interpretation: CHEST 2 VIEWS ROUTINE HISTORY: Atypical chest pain, dyspnea COMPARISON: Chest 01/12/2018. FINDINGS: The lungs are clear. Cardiac silhouette is normal in size. No pleural effusions. No pneumothorax. IMPRESSION: No acute process. Electronically signed by: Jeb Holt M.D. 03/27/2018 3:46 PM Dictated Date/Time: 03/27/2018 3:44 PM Laboratory Results 03/27/18 14:45 Red Blood Count 4.55, Mean Corpuscular Volume 71.9, Mean Corpuscular Hemoglobin 22.0, Mean Corpuscular Hemoglobin Concent 30.6, Mean Platelet Volume 8.9, Neutrophils (%) (Auto) 53.9, Lymphocytes (%) (Auto) 37.3, Monocytes (%) (Auto) 6.9, Eosinophils (%) (Auto) 1.3, Basophils (%) (Auto) 0.5, Neutrophils # (Auto) 4.42, Lymphocytes # (Auto) 3.06, Monocytes # (Auto) 0.57, Eosinophils # (Auto) 0.11, Basophils # (Auto) 0.04 03/27/18 14:45 Test 03/27/18 14:45 White Blood Count 8.21 K/uL (4.8-10.8) Red Blood Count 4.55 M/uL (4.2-5.4) Hemoglobin 10.0 g/dL (12.0-16.0) Hematocrit 32.7 % (37-47) Mean Corpuscular Volume 71.9 fL (80-100) Mean Corpuscular Hemoglobin 22.0 pg (25-34) Mean Corpuscular Hemoglobin Concent 30.6 g/dl (32-36) Platelet Count 384 K/uL (130-400) Mean Platelet Volume 8.9 fL (7.4-10.4) Neutrophils (%) (Auto) 53.9 % Lymphocytes (%) (Auto) 37.3 % Monocytes (%) (Auto) 6.9 % Eosinophils (%) (Auto) 1.3 % Basophils (%) (Auto) 0.5 % Neutrophils # (Auto) 4.42 K/uL (1.4-6.5) Lymphocytes # (Auto) 3.06 K/uL (1.2-3.4) Monocytes # (Auto) 0.57 K/uL (0.11-0.59) Eosinophils # (Auto) 0.11 K/uL (0-0.5) Basophils # (Auto) 0.04 K/uL (0-0.2) RDW Standard Deviation 44.6 fL (36.4-46.3) RDW Coefficient of Variation 17.2 % (11.5-14.5) Immature Granulocyte % (Auto) 0.1 % Immature Granulocyte # (Auto) 0.01 K/uL (0.00-0.02) Microcytosis PRESENT Prothrombin Time 21.3 SECONDS (9.0-12.0) Prothromb Time International Ratio 2.1 (0.9-1.1) Activated Partial Thromboplast Time 34.1 SECONDS (21.0-31.0) Partial Thromboplastin Ratio 1.3 Anion Gap 6.0 mmol/L (3-11) Est Creatinine Clear Calc Drug Dose 159.7 ml/min Estimated GFR () 122.5 Estimated GFR (Non- 105.7 BUN/Creatinine Ratio 11.3 (10-20) Calcium Level 8.5 mg/dl (8.5-10.1) Total Bilirubin 0.3 mg/dl (0.2-1) Aspartate Amino Transf (AST/SGOT) 27 U/L (15-37) Alanine Aminotransferase (ALT/SGPT) 41 U/L (12-78) Alkaline Phosphatase 93 U/L (45-117) Troponin I < 0.015 ng/ml (0-0.045) Total Protein 7.9 gm/dl (6.4-8.2) Albumin 3.4 gm/dl (3.4-5.0) Globulin 4.5 gm/dl (2.5-4.0) Albumin/Globulin Ratio 0.8 (0.9-2) Medications Administered Medications (Trade) Dose Ordered Sig/Ridge Route Start Time Stop Time Status Last Admin Dose Admin Acetaminophen (Tylenol Tab) 1,000 mg NOW STAT PO 03/27/18 15:11 03/27/18 15:14 DC 03/27/18 15:21 1,000 MG ECG Per My Interpretation Indication: chest pain Rate (beats per minute): 34 Rhythm: normal sinus Findings: no acute ischemic change Comparison ECG Date: 02/09/18 Change: no significant change (previous tachycardia no longer present.) ED Course The patient was seen and evaluated as above. IV access obtained, labs drawn. EKG performed and reviewed/interpreted by myself as above. Previous medical records reviewed. The patient was given 1 g p.o. Tylenol for headache and chest pain. Chest x-ray performed and reviewed by myself and radiologist as above. Labs reviewed by myself. I discussed the findings with the patient at bedside. I discussed the case with Dr. Rodriges. Discharge instructions reviewed, patient was discharged home in good condition. Medical Decision This is a 33-year-old female patient presents emergency department today complaining of chest pain or dyspnea. She does have a significant past medical history for bilateral pulmonary emboli. She states the symptoms came on suddenly, and she has not experienced these symptoms since approximately 1 week after discharge from the hospital. The patient's INR is therapeutic and has been since discharge. She denies any recent illness or fever. She has discontinued the use of oral contraceptives. The patient's labs reveal mild anemia. She states this is consistent with previous labs. There is no leukocytosis or thrombocytopenia. The patient's INR is therapeutic at 2.1. Her renal, hepatic function and electrolytes are without significant abnormalities. Her troponin is negative. Patient's EKG is without acute abnormalities. Based on these findings, I do not feel that the patient's symptoms are related to an acute pulmonary or cardiac source. I suspect musculoskeletal etiology versus discomfort from the previously diagnosed pulmonary emboli. I also discussed with the patient that I suspect the intermittent headache is related to the anticoagulant use. The patient was agreeable. She was encouraged to follow-up outpatient with her PCP and dough cutting machine operator. She verbalized understanding. All questions answered to patient' s satisfaction. Etiologies such as cardiac ischemia, aortic dissection, pulmonary embolism, pneumonia, pneumothorax, musculoskeletal, infections, gastrointestinal, as well as others were entertained. The chart was completed utilizing @[employer] voice recognition software. Grammatical errors, random word insertions, pronoun errors, and incomplete sentences are an occasional consequence of this system due to software limitations, ambient noise, and hardware issues. Any formal questions or concerns about the content, text, or information contained within the body of this dictation should be directly addressed to the provider for clarification. Medication Reconcilliation Current Medication List: was personally reviewed by me Blood Pressure Screening Patient's blood pressure: Elevated blood pressure Blood pressure disposition: Elevated BP felt to be situational Impression Primary Impression: Chest pain Additional Impressions: Dyspnea Headache Departure Information Dispostion Home / Self-Care Condition GOOD Referrals Nikky Yuen M.D. (PCP) Nicolás Weeks MD Patient Instructions ED Chest Pain NonCardiac, My [facility] Additional Instructions You were seen in the emergency department today for chest pain. You had a negative EKG and normal labs, as well as a normal chest x-ray. I do not suspect a cardiac or pulmonary etiology. As discussed, this could be referred pain related to your pulmonary embolisms. I do recommend you follow-up with your dough cutting machine operator for further workup and evaluation. Continue taking Coumadin as prescribed. Your INR here in the emergency department today was 2.1. Acetaminophen(Tylenol) may be used for fever or pain. Use 1000mg every six hours as needed. Avoid using more than 3000mg in a 24 hour period. Follow-up with your PCP/dough cutting machine operator in 1-2 days for reevaluation of your symptoms. Return immediately to the emergency department for any significantly worsening chest pain, dyspnea, dyspnea on exertion, fever, blood in your stool, urinary symptoms, or other signs of infection or concerns. Problem Qualifiers Primary Impression: Chest pain Chest pain type: unspecified Qualified Codes: R07.9 - Chest pain, unspecified Additional Impressions: Dyspnea Dyspnea type: shortness of breath Qualified Codes: R06.02 - Shortness of breath Headache Headache type: unspecified Headache chronicity pattern: unspecified pattern Intractability: not intractable Qualified Codes: R51 - Headache
[2018-03-27 15:24] LABS: BASO % 0.5 %; BASO ABS # 0.04 K/uL (0-0.2); EOS % 1.3 %; EOS ABS # 0.11 K/uL (0-0.5); HEMATOCRIT 32.7 % (37-47); IG# 0.01 K/uL (0.00-0.02); LYMPH % 37.3 %; LYMPH ABS # 3.06 K/uL (1.2-3.4); MEAN CELL VOLUME 71.9 fL (80-100); MEAN CORPUSCULAR HGB CONC 30.6 g/dl (32-36); MEAN PLATELET VOLUME 8.9 fL (7.4-10.4); MONO % 6.9 %; MONO ABS # 0.57 K/uL (0.11-0.59); NEUT % 53.9 %; NEUT ABS # 4.42 K/uL (1.4-6.5); PLATELET COUNT 384 K/uL (130-400); RED CELL DISTRIBUTION WIDTH CV 17.2 % (11.5-14.5); RED CELL DISTRIBUTION WIDTH SD 44.6 fL (36.4-46.3); WHITE BLOOD COUNT 8.21 K/uL (4.8-10.8)
[2018-03-27 15:32] LABS: ALBUMIN 3.4 gm/dl (3.4-5.0); ALT/SGPT 41 U/L (12-78); AST/SGOT 27 U/L (15-37); BLOOD UREA NITROGEN 8 mg/dl (7-18); CALCIUM 8.5 mg/dl (8.5-10.1); CARBON DIOXIDE 26 mmol/L (21-32); CREATININE 0.74 mg/dl (0.60-1.20); GLUCOSE 90 mg/dl (70-99); POTASSIUM 3.6 mmol/L (3.5-5.1); SODIUM 140 mmol/L (136-145)
[2018-03-27 15:35] LABS: INR 2.1 (0.9-1.1); PTT PATIENT 34.1 SECONDS (21.0-31.0)
[2018-03-27 15:37] LABS: ALKALINE PHOSPHATASE 93 U/L (45-117); TOTAL PROTEIN 7.9 gm/dl (6.4-8.2)
--- NOTE | 2018-03-27 15:48 | DIAGNOSTIC IMAGING REPORT ---
CHEST 2 VIEWS ROUTINE HISTORY: Atypical chest pain, dyspnea COMPARISON: Chest 01/12/2018. FINDINGS: The lungs are clear. Cardiac silhouette is normal in size. No pleural effusions. No pneumothorax. IMPRESSION: No acute process. Electronically signed by: Jeb Holt M.D. 03/27/2018 3:46 PM Dictated Date/Time: 03/27/2018 3:44 PM
[2018-03-27 16:20] VITALS: BP 135/78; PULSE 75; O2SAT 99
== END 2018-03-27 16:20 | disposition home or self-care (01) ==
LOC: C.EDB 14:11
DX: R07.9 Chest pain, unspecified (principal); R06.00 Dyspnea, unspecified; R51 Headache; Z86.711 Personal history of pulmonary embolism; Z79.01 Long term (current) use of anticoagulants; Z86.19 Personal history of other infectious and parasitic diseases